=== PATIENT | male | born 1965 | race Caucasian/White ===

== ENCOUNTER 2016-05-08 13:06 | Emergency (ER) | payer MEDICARE, OTHER ==
[~2016-05-08] VITALS: Ht 177.8 cm; Wt 90.7 kg
[~2016-05-08 13:06] MED LIST: ASCO500T20 PO; BIOT25006 PO; CA C1TAB26 PO; CALC-80 PO; CLCX200C PO; DIPH25TA82 PO; E400C PO; FLT05NA16 NSEACH; HYDR-2997 PO; HYDR-3583 PO; LISI10TA PO; LNZ600T PO; LORA10TA7 PO; LOVA40TA2 PO; MUPI22OI TP; OMEG-12 PO; RANI75TA30 PO
--- OUTSIDE RECORDS SUMMARY | 2016-05-08 13:15 | XMS REPORT | Continuity of Care Document ---
Author Author [facility] Address Unknown Phone Unavailable Allergies Active Description Code Type Severity Reaction Onset Reported/Identified Relationship to Patient Clinical Status Yes citrus Food Allergy N/A N/A 04/26/2009 Yes peanut butter Food Allergy N/A N/A 04/26/2009 Yes citrus Food Allergy 04/26/2009 Yes peanut butter Food Allergy 04/26/2009 Yes gabapentin 300 mg capsule Drug Allergy N/A N/A 10/16/2011 Yes tramadol 50 mg Tablet Drug Allergy N/A N/A 10/16/2011 Yes gabapentin 300 mg capsule Drug Allergy 10/16/2011 Yes tramadol 50 mg Tablet Drug Allergy 10/16/2011 Medications Problems Date Dx Coded Attending Type Code Diagnosis Diagnosed By 04/26/2009 ROSAURA MCCRAY DO 401.1 BENIGN ESSENTIAL HYPERTENSION 04/26/2009 ROSAURA MCCRAY DO 473.9 Unspecified Sinusitis (chronic) 04/26/2009 ROSAURA MCCRAY DO 786.05 Shortness Of Breath 04/26/2009 DAVID POOL PHD 401.1 BENIGN ESSENTIAL HYPERTENSION 04/26/2009 DAVID POOL PHD 473.9 Unspecified Sinusitis (chronic) 04/26/2009 DAVID POOL PHD 786.05 Shortness Of Breath 04/26/2009 401.1 BENIGN ESSENTIAL HYPERTENSION 04/26/2009 473.9 Unspecified Sinusitis (chronic) 04/26/2009 786.05 Shortness Of Breath 04/26/2009 401.1 BENIGN ESSENTIAL HYPERTENSION 04/26/2009 473.9 Unspecified Sinusitis (chronic) 04/26/2009 786.05 Shortness Of Breath 04/26/2009 TAYE NAVARRO DDS 401.1 BENIGN ESSENTIAL HYPERTENSION 04/26/2009 TAYE NAVARRO DDS 473.9 Unspecified Sinusitis (chronic) 04/26/2009 TAYE NAVARRO DDS 786.05 Shortness Of Breath 04/26/2009 TAYE NAVRARO DDS 401.1 BENIGN ESSENTIAL HYPERTENSION 04/26/2009 MELANIE DDS, TAYE M 473.9 Unspecified Sinusitis (chronic) 04/26/2009 MELANIE DDS, TAYE Adam 786.05 Shortness Of Breath 04/26/2009 MELANIE DDS, TAYE M 401.1 BENIGN ESSENTIAL HYPERTENSION 04/26/2009 MELANIE DDS, TAYE M 473.9 Unspecified Sinusitis (chronic) 04/26/2009 MELANIE DDS, TAYE Adam 786.05 Shortness Of Breath 04/26/2009 DAVID POOL PHD 401.1 BENIGN ESSENTIAL HYPERTENSION 04/26/2009 YRN HARGROVE, DAVID Benavides 473.9 Unspecified Sinusitis (chronic) 04/26/2009 DAVID POOL PHD 786.05 Shortness Of Breath 04/26/2009 JOSE LUIS HISTORIOGRAPHY TEACHER, BRADY S 401.1 BENIGN ESSENTIAL HYPERTENSION 04/26/2009 JOSE LUIS HISTORIOGRAPHY TEACHER, BRADY S 473.9 Unspecified Sinusitis (chronic) 04/26/2009 JOSE LUIS HISTORIOGRAPHY TEACHER, BRADY S 786.05 Shortness Of Breath 04/26/2009 JOSE LUIS HISTORIOGRAPHY TEACHER, BRADY S 401.1 BENIGN ESSENTIAL HYPERTENSION 04/26/2009 JOSE LUIS HISTORIOGRAPHY TEACHER, BRADY S 473.9 Unspecified Sinusitis (chronic) 04/26/2009 JOSE LUIS HISTORIOGRAPHY TEACHER, BRADY S 786.05 Shortness Of Breath 04/26/2009 WHITE DDS, MARIIA D 401.1 BENIGN ESSENTIAL HYPERTENSION 04/26/2009 WHITE DDS, MARIIA D 473.9 Unspecified Sinusitis (chronic) 04/26/2009 WHITE DDS, MARIIA D 786.05 Shortness Of Breath 04/26/2009 JOSE LUIS HISTORIOGRAPHY TEACHER, BRADY S 401.1 BENIGN ESSENTIAL HYPERTENSION 04/26/2009 JOSE LUIS HISTORIOGRAPHY TEACHER, BRADY S 473.9 Unspecified Sinusitis (chronic) 04/26/2009 JOSE LUIS HISTORIOGRAPHY TEACHER, BRADY S 786.05 Shortness Of Breath 05/10/2009 ROSAURA MCCRAY DO 272.4 OTHER AND UNSPECIFIED HYPERLIPIDEMIA 05/10/2009 DAVID POOL PHD 272.4 OTHER AND UNSPECIFIED HYPERLIPIDEMIA 05/10/2009 272.4 OTHER AND UNSPECIFIED HYPERLIPIDEMIA 05/10/2009 272.4 OTHER AND UNSPECIFIED HYPERLIPIDEMIA 05/10/2009 MELANIE ROJASS, TAYE M 272.4 OTHER AND UNSPECIFIED HYPERLIPIDEMIA 05/10/2009 MELANIE DDS, TAYE M 272.4 OTHER AND UNSPECIFIED HYPERLIPIDEMIA 05/10/2009 MELANIE DDS, TAYE M 272.4 OTHER AND UNSPECIFIED HYPERLIPIDEMIA 05/10/2009 YRN PHD, DAVID Benavides 272.4 OTHER AND UNSPECIFIED HYPERLIPIDEMIA 05/10/2009 JOSE LUIS HISTORIOGRAPHY TEACHER, BRADY S 272.4 OTHER AND UNSPECIFIED HYPERLIPIDEMIA 05/10/2009 JOSE LUIS HISTORIOGRAPHY TEACHER, BRADY S 272.4 OTHER AND UNSPECIFIED HYPERLIPIDEMIA 05/10/2009 WHITE DDS, MARIIA Garduno 272.4 OTHER AND UNSPECIFIED HYPERLIPIDEMIA 05/10/2009 JOSE LUIS HISTORIOGRAPHY TEACHER, BRADY S 272.4 OTHER AND UNSPECIFIED HYPERLIPIDEMIA 09/04/2009 ROSAURA MCCRAY DO 692.9 Dermatitis Contact Unspecified 09/04/2009 YRN PHD, DAVID Benavides 692.9 Dermatitis Contact Unspecified 09/04/2009 692.9 Dermatitis Contact Unspecified 09/04/2009 692.9 Dermatitis Contact Unspecified 09/04/2009 MELANIE DDS, TAYE M 692.9 Dermatitis Contact Unspecified 09/04/2009 MELANIE DDS, TAYE M 692.9 Dermatitis Contact Unspecified 09/04/2009 MELANIE DDS, TAYE M 692.9 Dermatitis Contact Unspecified 09/04/2009 YRN PHD, DAVID Benavides 692.9 Dermatitis Contact Unspecified 09/04/2009 JOSE LUIS HISTORIOGRAPHY TEACHER, BRADY S 692.9 Dermatitis Contact Unspecified 09/04/2009 JOSE LUIS HISTORIOGRAPHY TEACHER, BRADY S 692.9 Dermatitis Contact Unspecified 09/04/2009 WHITE DDS, MARIIA Garduno 692.9 Dermatitis Contact Unspecified 09/04/2009 JOSE LUIS HISTORIOGRAPHY TEACHER, BRADY S 692.9 Dermatitis Contact Unspecified 12/26/2009 ROSAURA MCCRAY DO 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 12/26/2009 ROSAURA MCCRAY DO V03.82 Pcv7 Pcv13 Pcv23, Streptococcus Pneumoniae [ pneumococcus] 12/26/2009 DAVID POOL PHD 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 12/26/2009 YRN HARGROVE, DAVID Benavides V03.82 Pcv7 Pcv13 Pcv23, Streptococcus Pneumoniae [pneumococcus] 12/26/2009 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 12/26/2009 V03.82 Pcv7 Pcv13 Pcv23, Streptococcus Pneumoniae [pneumococcus] 12/26/2009 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 12/26/2009 V03.82 Pcv7 Pcv13 Pcv23, Streptococcus Pneumoniae [pneumococcus] 12/26/2009 MELANIE DDS, TAYE Adam 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 12/26/2009 MELANIE DDS, TAYE Adam V03.82 Pcv7 Pcv13 Pcv23, Streptococcus Pneumoniae [pneumococcus] 12/26/2009 MELANIE DDS, TAYE Kia 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 12/26/2009 MELANIE DDS, TAYE Adam V03.82 Pcv7 Pcv13 Pcv23, Streptococcus Pneumoniae [pneumococcus] 12/26/2009 MELANIE DDS, TAYE Adam 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 12/26/2009 MELANIE DDS, TAYE Adam V03.82 Pcv7 Pcv13 Pcv23, Streptococcus Pneumoniae [pneumococcus] 12/26/2009 YRN HARGROVE, DAVID Benavides 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 12/26/2009 YRN HARGROVE, DAVID Benavides V03.82 Pcv7 Pcv13 Pcv23, Streptococcus Pneumoniae [pneumococcus] 12/26/2009 JOSE LUIS MEZAN, BRADY S 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 12/26/2009 JOSE LUIS MEZAN, BRADY S V03.82 Pcv7 Pcv13 Pcv23, Streptococcus Pneumoniae [pneumococcus] 12/26/2009 JOSE LUIS MEZAN, BRADY S 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 12/26/2009 JOSE LUIS MEZAN, BRADY S V03.82 Pcv7 Pcv13 Pcv23, Streptococcus Pneumoniae [pneumococcus] 12/26/2009 DAE DDS, MARIIA Garduno 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21 ACUTE POSTRAUMATIC HEADACHE 08/07/2010 DAVID POOL PHD 368.8 OTHER SPECIFIED VISUAL DISTURBANCES 08/07/2010 DAVID POOL PHD A 785.1 Palpitations 08/07/2010 DAVID POOL PHD 959.01 OTHER AND UNSPECIFIED INJURY TO HEAD 08/07/2010 339.21 ACUTE POSTRAUMATIC HEADACHE 08/07/2010 368.8 OTHER SPECIFIED VISUAL DISTURBANCES 08/07/2010 785.1 Palpitations 08/07/2010 959.01 OTHER AND UNSPECIFIED INJURY TO HEAD 08/07/2010 339.21 ACUTE POSTRAUMATIC HEADACHE 08/07/2010 368.8 OTHER SPECIFIED VISUAL DISTURBANCES 08/07/2010 785.1 Palpitations 08/07/2010 959.01 OTHER AND UNSPECIFIED INJURY TO HEAD 08/07/2010 MELANIE DDS, TAYE M 339.21 ACUTE POSTRAUMATIC HEADACHE 08/07/2010 MELANIE DDS, TAYE M 368.8 OTHER SPECIFIED VISUAL DISTURBANCES 08/07/2010 MELANIE DDS, TAYE M 785.1 Palpitations 08/07/2010 MELANIE DDS, TAYE M 959.01 OTHER AND UNSPECIFIED INJURY TO HEAD 08/07/2010 MELANIE DDS, TAYE M 339.21 ACUTE POSTRAUMATIC HEADACHE 08/07/2010 MELANIE DDS, TAYE M 368.8 OTHER SPECIFIED VISUAL DISTURBANCES 08/07/2010 MELANIE DDS, TAYE M 785.1 Palpitations 08/07/2010 MELANIE DDS, TAYE M 959.01 OTHER AND UNSPECIFIED INJURY TO HEAD 08/07/2010 MELANIE DDS, TAYE M 339.21 ACUTE POSTRAUMATIC HEADACHE 08/07/2010 MELANIE DDS, TAYE M 368.8 OTHER SPECIFIED VISUAL DISTURBANCES 08/07/2010 MELANIE DDS, TAYE M 785.1 Palpitations 08/07/2010 MELANIE DDS, TAYE M 959.01 OTHER AND UNSPECIFIED INJURY TO HEAD 08/07/2010 [facility], DAVID A 339.21 ACUTE POSTRAUMATIC HEADACHE 08/07/2010 [facility], DAVID A 368.8 OTHER SPECIFIED VISUAL DISTURBANCES 08/07/2010 [facility] PH[facility], DAVID A 785.1 Palpitations 08/07/2010 [facility] PHD, DAVID A 959.01 OTHER AND UNSPECIFIED INJURY TO HEAD 08/07/2010 JOSE LUIS HISTORIOGRAPHY TEACHER, BRADY S 339.21 ACUTE POSTRAUMATIC HEADACHE 08/07/2010 JOSE LUIS HISTORIOGRAPHY TEACHER, BRADY S 368.8 OTHER SPECIFIED VISUAL DISTURBANCES 08/07/2010 JOSE LUIS HISTORIOGRAPHY TEACHER, BRADY S 785.1 Palpitations 08/07/2010 JOSE LUIS HISTORIOGRAPHY TEACHER, BRADY S 959.01 OTHER AND UNSPECIFIED INJURY TO HEAD 08/07/2010 JOSE LUIS HISTORIOGRAPHY TEACHER, BRADY S 339.21 ACUTE POSTRAUMATIC HEADACHE 08/07/2010 JOSE LUIS HISTORIOGRAPHY TEACHER, BRADY S 368.8 OTHER SPECIFIED VISUAL DISTURBANCES 08/07/2010 JOSE LUIS HISTORIOGRAPHY TEACHER, BRADY S 785.1 Palpitations 08/07/2010 JOSE LUIS HISTORIOGRAPHY TEACHER, BRADY S 959.01 OTHER AND UNSPECIFIED INJURY TO HEAD 08/07/2010 WHITE DDS, MARIIA D 339.21 ACUTE POSTRAUMATIC HEADACHE 08/07/2010 WHITE DDS, MARIIA D 368.8 OTHER SPECIFIED VISUAL DISTURBANCES 08/07/2010 WHITE DDS, MARIIA D 785.1 Palpitations 08/07/2010 WHITE DDS, MARIIA D 959.01 OTHER AND UNSPECIFIED INJURY TO HEAD 08/07/2010 JOSE LUIS HISTORIOGRAPHY TEACHER, BRADY S 339.21 ACUTE POSTRAUMATIC HEADACHE 08/07/2010 JOSE LUIS HISTORIOGRAPHY TEACHER, BRADY S 368.8 OTHER SPECIFIED VISUAL DISTURBANCES 08/07/2010 JOSE LUIS HISTORIOGRAPHY TEACHER, BRADY S 785.1 Palpitations 08/07/2010 JOSE LUIS HISTORIOGRAPHY TEACHER, BRADY S 959.01 OTHER AND UNSPECIFIED INJURY TO HEAD 08/30/2010 ROSAURA MCCRAY DO 682.0 Cellulitis And Abscess Of Face 08/30/2010 YRN PHD, DAVID Benavides 682.0 Cellulitis And Abscess Of Face 08/30/2010 682.0 Cellulitis And Abscess Of Face 08/30/2010 682.0 Cellulitis And Abscess Of Face 08/30/2010 MELANIE DDS, TAYE Adam 682.0 Cellulitis And Abscess Of Face 08/30/2010 MELANIE DDS, TAYE Adam 682.0 Cellulitis And Abscess Of Face 08/30/2010 MELANIE DDS, TAYE Adam 682.0 Cellulitis And Abscess Of Face 08/30/2010 YRN PHD, DAVID Benavides 682.0 Cellulitis And Abscess Of Face 08/30/2010 JOSE LUIS HISTORIOGRAPHY TEACHER, BRADY S 682.0 Cellulitis And Abscess Of Face 08/30/2010 JOSE LUIS HISTORIOGRAPHY TEACHER, BRADY S 682.0 Cellulitis And Abscess Of Face 08/30/2010 DAE DDS, MARIIA Garduno 682.0 Cellulitis And Abscess Of Face 08/30/2010 JOSE LUIS HISTORIOGRAPHY TEACHER, BRADY S 682.0 Cellulitis And Abscess Of Face 11/21/2010 ROSAURA MCCRAY DO 719.49 PAIN IN JOINT INVOLVING MULTIPLE SITES 11/21/2010 ROSAURA MCCRAY DO 780.2 Syncope And Collapse 11/21/2010 YRN HARGROVE, DAVID Benavides 719.49 PAIN IN JOINT INVOLVING MULTIPLE SITES 11/21/2010 DAVID POOL PHD 780.2 Syncope And Collapse 11/21/2010 719.49 PAIN IN JOINT INVOLVING MULTIPLE SITES 11/21/2010 780.2 Syncope And Collapse 11/21/2010 719.49 PAIN IN JOINT INVOLVING MULTIPLE SITES 11/21/2010 780.2 Syncope And Collapse 11/21/2010 MELANIE DDS, TAYE Adam 719.49 PAIN IN JOINT INVOLVING MULTIPLE SITES 11/21/2010 MELANIE DDS, TAYE Adam 780.2 Syncope And Collapse 11/21/2010 MELANIE DDS, TAYE Adam 719.49 PAIN IN JOINT INVOLVING MULTIPLE SITES 11/21/2010 MELANIE DDS, TAYE Adam 780.2 Syncope And Collapse 11/21/2010 MELANIE DDS, TAYE Adam 719.49 PAIN IN JOINT INVOLVING MULTIPLE SITES 11/21/2010 MELANIE DDS, TAYE Adam 780.2 Syncope And Collapse 11/21/2010 DAVID POOL PHD 719.49 PAIN IN JOINT INVOLVING MULTIPLE SITES 11/21/2010 DAVID POOL PHD 780.2 Syncope And Collapse 11/21/2010 JOSE LUIS HISTORIOGRAPHY TEACHER, BRADY S 719.49 PAIN IN JOINT INVOLVING MULTIPLE SITES 11/21/2010 JOSE LUIS HISTORIOGRAPHY TEACHER, BRADY S 780.2 Syncope And Collapse 11/21/2010 JOSE LUIS HISTORIOGRAPHY TEACHER, BRADY S 719.49 PAIN IN JOINT INVOLVING MULTIPLE SITES 11/21/2010 JOSE LUIS HISTORIOGRAPHY TEACHER, BRADY S 780.2 Syncope And Collapse 11/21/2010 WHITE DDS, MARIIA D 719.49 PAIN IN JOINT INVOLVING MULTIPLE SITES 11/21/2010 WHITE DDS, MARIIA D 780.2 Syncope And Collapse 11/21/2010 JOSE LUIS HISTORIOGRAPHY TEACHER, BRADY S 719.49 PAIN IN JOINT INVOLVING MULTIPLE SITES 11/21/2010 JOSE LUIS HISTORIOGRAPHY TEACHER, BRADY S 780.2 Syncope And Collapse 11/28/2010 ROSAURA MCCRAY DO 311 DEPRESSIVE DISORDER NOS 11/28/2010 DAVID POOL PHD 311 DEPRESSIVE DISORDER NOS 11/28/2010 311 DEPRESSIVE DISORDER NOS 11/28/2010 311 DEPRESSIVE DISORDER NOS 11/28/2010 MELANIE DDS, TAYE Adam 311 DEPRESSIVE DISORDER NOS 11/28/2010 MELANIE DDS, TAYE Adam 311 DEPRESSIVE DISORDER NOS 11/28/2010 MELANIE DDS, TAYE Adam 311 DEPRESSIVE DISORDER NOS 11/28/2010 DAVID POOL PHD 311 DEPRESSIVE DISORDER NOS 11/28/2010 JOSE LUIS PATEL, BRADY S 311 DEPRESSIVE DISORDER NOS 11/28/2010 JOSE LUIS PATEL, BRADY S 311 DEPRESSIVE DISORDER NOS 11/28/2010 DAE DDS, MARIIA Garduno 311 DEPRESSIVE DISORDER NOS 11/28/2010 JOSE LUIS HISTORIOGRAPHY TEACHER, BRADY S 311 DEPRESSIVE DISORDER NOS 12/05/2010 ROSAURA MCCRAY DO V04.81 Flu Dx (3 Yrs And Above, Im) 12/05/2010 DAVID POOL PHD V04.81 Flu Dx (3 Yrs And Above, Im) 12/05/2010 V04.81 Flu Dx (3 Yrs And Above, Im) 12/05/2010 V04.81 Flu Dx (3 Yrs And Above, Im) 12/05/2010 MELANIE DDS, TAYE Adam V04.81 Flu Dx (3 Yrs And Above, Im) 12/05/2010 MELANIE DDS, TAYE Adam V04.81 Flu Dx (3 Yrs And Above, Im) 12/05/2010 MELANIE DDS, TAYE Adam V04.81 Flu Dx (3 Yrs And Above, Im) 12/05/2010 DAVID POOL PHD V04.81 Flu Dx (3 Yrs And Above, Im) 12/05/2010 JOSE LUIS HISTORIOGRAPHY TEACHER, BRADY S V04.81 Flu Dx (3 Yrs And Above, Im) 12/05/2010 JOSE LUIS HISTORIOGRAPHY TEACHER, BRADY S V04.81 Flu Dx (3 Yrs And Above, Im) 12/05/2010 WHITE DDS, MARIIA Garduno V04.81 Flu Dx (3 Yrs And Above, Im) 12/05/2010 JOSE LUIS HISTORIOGRAPHY TEACHER, BRADY S V04.81 Flu Dx (3 Yrs And Above, Im) 01/02/2011 ROSAURA MCCRAY DO K 786.50 Chest Pain 01/02/2011 DAVID POOL PHD 786.50 Chest Pain 01/02/2011 786.50 Chest Pain 01/02/2011 786.50 Chest Pain 01/02/2011 MELANIE DDS, TAYE Adam 786.50 Chest Pain 01/02/2011 MELANIE DDS, TAYE Adam 786.50 Chest Pain 01/02/2011 MELANIE DDS, TAYE Adam 786.50 Chest Pain 01/02/2011 DAVID POOL PHD A 786.50 Chest Pain 01/02/2011 JOSE LUIS HISTORIOGRAPHY TEACHER, BRADY S 786.50 Chest Pain 01/02/2011 JOSE LUIS HISTORIOGRAPHY TEACHER, BRADY S 786.50 Chest Pain 01/02/2011 WHITE DDS, MARIIA D 786.50 Chest Pain 01/02/2011 JOSE LUIS HISTORIOGRAPHY TEACHER, BRADY S 786.50 Chest Pain 01/07/2011 ROSAURA MCCRAY DO 706.2 Sebaceous Cyst 01/07/2011 ROSAURA MCCRAY DO 959.09 OTHER AND UNSPECIFIED INJURY TO FACE AND NECK 01/07/2011 DAVID POOL PHD 706.2 Sebaceous Cyst 01/07/2011 DAVID POOL PHD 959.09 OTHER AND UNSPECIFIED INJURY TO FACE AND NECK 01/07/2011 706.2 Sebaceous Cyst 01/07/2011 959.09 OTHER AND UNSPECIFIED INJURY TO FACE AND NECK 01/07/2011 706.2 Sebaceous Cyst 01/07/2011 959.09 OTHER AND UNSPECIFIED INJURY TO FACE AND NECK 01/07/2011 MELANIE DDS, TAYE M 706.2 Sebaceous Cyst 01/07/2011 MELANIE DDS, TAYE M 959.09 OTHER AND UNSPECIFIED INJURY TO FACE AND NECK 01/07/2011 MELANIE DDS, TAYE M 706.2 Sebaceous Cyst 01/07/2011 MELANIE DDS, TAYE M 959.09 OTHER AND UNSPECIFIED INJURY TO FACE AND NECK 01/07/2011 MELANIE DDS, TAYE M 706.2 Sebaceous Cyst 01/07/2011 MELANIE DDS, TAYE M 959.09 OTHER AND UNSPECIFIED INJURY TO FACE AND NECK 01/07/2011 DAVID POOL PHD 706.2 Sebaceous Cyst 01/07/2011 DAVID POOL PHD 959.09 OTHER AND UNSPECIFIED INJURY TO FACE AND NECK 01/07/2011 JOSE LUIS HISTORIOGRAPHY TEACHER, BRADY S 706.2 Sebaceous Cyst 01/07/2011 JOSE LUIS HISTORIOGRAPHY TEACHER, BRADY S 959.09 OTHER AND UNSPECIFIED INJURY TO FACE AND NECK 01/07/2011 JOSE LUIS HISTORIOGRAPHY TEACHER, BRADY S 706.2 Sebaceous Cyst 01/07/2011 JOSE LUIS HISTORIOGRAPHY TEACHER, BRADY S 959.09 OTHER AND UNSPECIFIED INJURY TO FACE AND NECK 01/07/2011 WHITE DDS, MARIIA D 706.2 Sebaceous Cyst 01/07/2011 WHITE DDS, MARIIA D 959.09 OTHER AND UNSPECIFIED INJURY TO FACE AND NECK 01/07/2011 JOSE LUIS HISTORIOGRAPHY TEACHER, BRADY S 706.2 Sebaceous Cyst 01/07/2011 JOSE LUIS HISTORIOGRAPHY TEACHER, BRADY S 959.09 OTHER AND UNSPECIFIED INJURY TO FACE AND NECK 04/30/2011 ROSAURA MCCRAY DO 473.9 Unspecified Sinusitis (chronic) 04/30/2011 DAVID POOL PHD 473.9 Unspecified Sinusitis (chronic) 04/30/2011 473.9 Unspecified Sinusitis (chronic) 04/30/2011 473.9 Unspecified Sinusitis (chronic) 04/30/2011 MELANIE DDS, TAYE Adam 473.9 Unspecified Sinusitis (chronic) 04/30/2011 MELANIE DDS, TAYE M 473.9 Unspecified Sinusitis (chronic) 04/30/2011 MELANIE ROJASS, TAYE Adam 473.9 Unspecified Sinusitis (chronic) 04/30/2011 DAVID POOL PHD 473.9 Unspecified Sinusitis (chronic) 04/30/2011 JOSE LUIS HISTORIOGRAPHY TEACHER, BRADY S 473.9 Unspecified Sinusitis (chronic) 04/30/2011 JOSE LUIS HISTORIOGRAPHY TEACHER, BRADY S 473.9 Unspecified Sinusitis (chronic) 04/30/2011 DAE ROJASS, MARIIA Garduno 473.9 Unspecified Sinusitis (chronic) 04/30/2011 JOSE LUIS HISTORIOGRAPHY TEACHER, BRADY S 473.9 Unspecified Sinusitis (chronic) 05/22/2011 MAHENDRA DOROSAURA K 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 05/22/2011 DAVID POOL PHD 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 05/22/2011 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 05/22/2011 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 05/22/2011 TAYE NAVARRO DDS 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 05/22/2011 TAYE NAVARRO DDS 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 05/22/2011 TAYE NAVARRO DDS 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 05/22/2011 DAVID POOL PHD 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 05/22/2011 JOSE LUIS HISTORIOGRAPHY TEACHER, BRADY S 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6 Contact Dermatitis And Other Eczema Due To Plants (except Food) 07/11/2011 DAVID POOL PHD 719.40 PAIN IN JOINT SITE UNSPECIFIED 07/11/2011 DAVID POOL PHD 780.79 Other Malaise And Fatigue 07/11/2011 692.6 Contact Dermatitis And Other Eczema Due To Plants (except Food) 07/11/2011 719.40 PAIN IN JOINT SITE UNSPECIFIED 07/11/2011 780.79 Other Malaise And Fatigue 07/11/2011 692.6 Contact Dermatitis And Other Eczema Due To Plants (except Food) 07/11/2011 719.40 PAIN IN JOINT SITE UNSPECIFIED 07/11/2011 780.79 Other Malaise And Fatigue 07/11/2011 MELANIE DDS, TAYE Adam 692.6 Contact Dermatitis And Other Eczema Due To Plants (except Food) 07/11/2011 MELANIE DDS, TAYE Adam 719.40 PAIN IN JOINT SITE UNSPECIFIED 07/11/2011 MELANIE DDS, TAYE Adam 780.79 Other Malaise And Fatigue 07/11/2011 MELANIE DDS, TAYE M 692.6 Contact Dermatitis And Other Eczema Due To Plants (except Food) 07/11/2011 MELANIE DDS, TAYE Adam 719.40 PAIN IN JOINT SITE UNSPECIFIED 07/11/2011 MELANIE DDS, TAYE Adam 780.79 Other Malaise And Fatigue 07/11/2011 MELANIE DDS, TAYE M 692.6 Contact Dermatitis And Other Eczema Due To Plants (except Food) 07/11/2011 MELANIE DDS, TAYE M 719.40 PAIN IN JOINT SITE UNSPECIFIED 07/11/2011 MELANIE DDS, TAYE Adam 780.79 Other Malaise And Fatigue 07/11/2011 DAVID POOL PHD 692.6 Contact Dermatitis And Other Eczema Due To Plants (except Food) 07/11/2011 YRN HARGROVE DAVID Benavides 719.40 PAIN IN JOINT SITE UNSPECIFIED 07/11/2011 YRN HARGROVE, DAVID Benavides 780.79 Other Malaise And Fatigue 07/11/2011 JOSE LUIS HISTORIOGRAPHY TEACHER, BRADY S 692.6 Contact Dermatitis And Other Eczema Due To Plants (except Food) 07/11/2011 JOSE LUIS HISTORIOGRAPHY TEACHER, BRADY S 719.40 PAIN IN JOINT SITE UNSPECIFIED 07/11/2011 JOSE LUIS HISTORIOGRAPHY TEACHER, BRADY S 780.79 Other Malaise And Fatigue 07/11/2011 JOSE LUIS HISTORIOGRAPHY TEACHER, BRADY S 692.6 Contact Dermatitis And Other Eczema Due To Plants (except Food) 07/11/2011 JOSE LUIS HISTORIOGRAPHY TEACHER, BRADY S 719.40 PAIN IN JOINT SITE UNSPECIFIED 07/11/2011 JOSE LUIS HISTORIOGRAPHY TEACHER, BRADY S 780.79 Other Malaise And Fatigue 07/11/2011 WHITE DDS, MARIIA D 692.6 Contact Dermatitis And Other Eczema Due To Plants (except Food) 07/11/2011 WHITE DDS, MARIIA D 719.40 PAIN IN JOINT SITE UNSPECIFIED 07/11/2011 WHITE DDS, MARIIA D 780.79 Other Malaise And Fatigue 07/11/2011 JOSE LUIS HISTORIOGRAPHY TEACHER, BRADY S 692.6 Contact Dermatitis And Other Eczema Due To Plants (except Food) 07/11/2011 JOSE LUIS HISTORIOGRAPHY TEACHER, BRADY S 719.40 PAIN IN JOINT SITE UNSPECIFIED 07/11/2011 JOSE LUIS HISTORIOGRAPHY TEACHER, BRADY S 780.79 Other Malaise And Fatigue 07/30/2011 ROSAURA MCCRAY DO 682.3 Cellulitis And Abscess Of Upper Arm And Forearm 07/30/2011 ROSAURA MCCRAY DO 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 07/30/2011 YRN HARGROVE, DAVID Benavides 682.3 Cellulitis And Abscess Of Upper Arm And Forearm 07/30/2011 YRN HARGROVE, DAVID Benavides 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 07/30/2011 682.3 Cellulitis And Abscess Of Upper Arm And Forearm 07/30/2011 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 07/30/2011 682.3 Cellulitis And Abscess Of Upper Arm And Forearm 07/30/2011 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 07/30/2011 MELANIE DDS, TAYE M 682.3 Cellulitis And Abscess Of Upper Arm And Forearm 07/30/2011 MELANIE DDS, TAYE M 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 07/30/2011 MELANIE DDS, TAYE M 682.3 Cellulitis And Abscess Of Upper Arm And Forearm 07/30/2011 MELANIE DDS, TAYE M 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 07/30/2011 MELANIE DDS, TAYE M 682.3 Cellulitis And Abscess Of Upper Arm And Forearm 07/30/2011 MELANIE DDS, TAYE M 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 07/30/2011 DAVID POOL PHD 682.3 Cellulitis And Abscess Of Upper Arm And Forearm 07/30/2011 DAVID POOL PHD 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 07/30/2011 JOSE LUIS HISTORIOGRAPHY TEACHER, BRADY S 682.3 Cellulitis And Abscess Of Upper Arm And Forearm 07/30/2011 JOSE LUIS HISTORIOGRAPHY TEACHER, BRADY S 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 07/30/2011 JOSE LUIS HISTORIOGRAPHY TEACHER, BRADY S 682.3 Cellulitis And Abscess Of Upper Arm And Forearm 07/30/2011 JOSE LUIS HISTORIOGRAPHY TEACHER, BRADY S 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 07/30/2011 WHITE DDS, MARIIA D 682.3 Cellulitis And Abscess Of Upper Arm And Forearm 07/30/2011 WHITE DDS, MARIIA D 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 07/30/2011 JOSE LUIS HISTORIOGRAPHY TEACHER, BRADY S 682.3 Cellulitis And Abscess Of Upper Arm And Forearm 07/30/2011 JOSE LUIS HISTORIOGRAPHY TEACHER, BRADY S 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 08/05/2011 ROSAURA MCCRAY DO 041.12 Mrsa, Methicillin Resistant 08/05/2011 ROSAURA MCCRAY DO 682.3 Cellulitis And Abscess Of Upper Arm And Forearm 08/05/2011 YRN HARGROVE, DAVID Benavides 041.12 Mrsa, Methicillin Resistant 08/05/2011 YRN HARGROVE, DAVID Benavides 682.3 Cellulitis And Abscess Of Upper Arm And Forearm 08/05/2011 041.12 Mrsa, Methicillin Resistant 08/05/2011 682.3 Cellulitis And Abscess Of Upper Arm And Forearm 08/05/2011 041.12 Mrsa, Methicillin Resistant 08/05/2011 682.3 Cellulitis And Abscess Of Upper Arm And Forearm 08/05/2011 MELANIE DDS, TAYE M 041.12 Mrsa, Methicillin Resistant 08/05/2011 MELANIE DDS, TAYE M 682.3 Cellulitis And Abscess Of Upper Arm And Forearm 08/05/2011 MELANIE DDS, TAYE M 041.12 Mrsa, Methicillin Resistant 08/05/2011 MELANIE DDS, TAYE M 682.3 Cellulitis And Abscess Of Upper Arm And Forearm 08/05/2011 MELANIE DDS, TAYE M 041.12 Mrsa, Methicillin Resistant 08/05/2011 MELANIE DDS, TAYE M 682.3 Cellulitis And Abscess Of Upper Arm And Forearm 08/05/2011 DAVID POOL PHD 041.12 Mrsa, Methicillin Resistant 08/05/2011 DAVID POOL PHD 682.3 Cellulitis And Abscess Of Upper Arm And Forearm 08/05/2011 JOSE LUIS HISTORIOGRAPHY TEACHER, BRADY S 041.12 Mrsa, Methicillin Resistant 08/05/2011 JOSE LUIS HISTORIOGRAPHY TEACHER, BRADY S 682.3 Cellulitis And Abscess Of Upper Arm And Forearm 08/05/2011 JOSE LUIS HISTORIOGRAPHY TEACHER, BRADY S 041.12 Mrsa, Methicillin Resistant 08/05/2011 JOSE LUIS HISTORIOGRAPHY TEACHER, BRADY S 682.3 Cellulitis And Abscess Of Upper Arm And Forearm 08/05/2011 WHITE DDS, MARIIA D 041.12 Mrsa, Methicillin Resistant 08/05/2011 WHITE DDS, MARIIA D 682.3 Cellulitis And Abscess Of Upper Arm And Forearm 08/05/2011 JOSE LUIS HISTORIOGRAPHY TEACHER, BRADY S 041.12 Mrsa, Methicillin Resistant 08/05/2011 JOSE LUIS HISTORIOGRAPHY TEACHER, BRADY S 682.3 Cellulitis And Abscess Of Upper Arm And Forearm 09/19/2011 ROSAURA MCCRAY DO 338.29 OTHER CHRONIC PAIN 09/19/2011 ROSAURA MCCRAY DO 339.22 CHRONIC POSTTRAUMATIC HEADACHE 09/19/2011 DAVID POOL PHD 338.29 OTHER CHRONIC PAIN 09/19/2011 DAVID POOL PHD 339.22 CHRONIC POSTTRAUMATIC HEADACHE 09/19/2011 338.29 OTHER CHRONIC PAIN 09/19/2011 339.22 CHRONIC POSTTRAUMATIC HEADACHE 09/19/2011 338.29 OTHER CHRONIC PAIN 09/19/2011 339.22 CHRONIC POSTTRAUMATIC HEADACHE 09/19/2011 MELANIE DDS, TAYE M 338.29 OTHER CHRONIC PAIN 09/19/2011 MELANIE DDS, TAYE M 339.22 CHRONIC POSTTRAUMATIC HEADACHE 09/19/2011 MELANIE DDS, TAYE M 338.29 OTHER CHRONIC PAIN 09/19/2011 MELANIE DDS, TAYE M 339.22 CHRONIC POSTTRAUMATIC HEADACHE 09/19/2011 MELANIE DDS, TAYE M 338.29 OTHER CHRONIC PAIN 09/19/2011 MELANIE DDS, TAYE M 339.22 CHRONIC POSTTRAUMATIC HEADACHE 09/19/2011 YRN PHD, DAVID Benavides 338.29 OTHER CHRONIC PAIN 09/19/2011 YRN HARGROVE, DAVID Benavides 339.22 CHRONIC POSTTRAUMATIC HEADACHE 09/19/2011 JOSE LUIS HISTORIOGRAPHY TEACHER, BRADY S 338.29 OTHER CHRONIC PAIN 09/19/2011 JOSE LUIS HISTORIOGRAPHY TEACHER, BRADY S 339.22 CHRONIC POSTTRAUMATIC HEADACHE 09/19/2011 JOSE LUIS HISTORIOGRAPHY TEACHER, BRADY S 338.29 OTHER CHRONIC PAIN 09/19/2011 JOSE LUIS HISTORIOGRAPHY TEACHER, BRADY S 339.22 CHRONIC POSTTRAUMATIC HEADACHE 09/19/2011 WHITE DDS, MARIIA D 338.29 OTHER CHRONIC PAIN 09/19/2011 WHITE DDS, MARIIA D 339.22 CHRONIC POSTTRAUMATIC HEADACHE 09/19/2011 JOSE LUIS HISTORIOGRAPHY TEACHER, BRADY S 338.29 OTHER CHRONIC PAIN 09/19/2011 JOSE LUIS HISTORIOGRAPHY TEACHER, BRADY S 339.22 CHRONIC POSTTRAUMATIC HEADACHE 10/16/2011 MCCRAY DO, ROSAURA K 079.99 Viral Syndrome 10/16/2011 MCCRAY DO, ROSAURA K 787.1 Heartburn 10/16/2011 YRN PHD, DAVID Benavides 079.99 Viral Syndrome 10/16/2011 YRN PHD, DAVID Benavides 787.1 Heartburn 10/16/2011 079.99 Viral Syndrome 10/16/2011 787.1 Heartburn 10/16/2011 079.99 Viral Syndrome 10/16/2011 787.1 Heartburn 10/16/2011 MELANIE DDS, TAYE Adam 079.99 Viral Syndrome 10/16/2011 MELANIE DDS, TAYE M 787.1 Heartburn 10/16/2011 MELANIE DDS, TAYE M 079.99 Viral Syndrome 10/16/2011 MELANIE DDS, TAYE M 787.1 Heartburn 10/16/2011 MELANIE DDS, TAYE M 079.99 Viral Syndrome 10/16/2011 MELANIE DDS, TAYE M 787.1 Heartburn 10/16/2011 YRN PHD, DAVID A 079.99 Viral Syndrome 10/16/2011 YRN PHD, DAVID A 787.1 Heartburn 10/16/2011 JOSE LUIS HISTORIOGRAPHY TEACHER, BRADY S 079.99 Viral Syndrome 10/16/2011 JOSE LUIS HISTORIOGRAPHY TEACHER, BRDAY S 787.1 Heartburn 10/16/2011 JOSE LUIS HISTORIOGRAPHY TEACHER, BRADY S 079.99 Viral Syndrome 10/16/2011 JOSE LUIS HISTORIOGRAPHY TEACHER, BRADY S 787.1 Heartburn 10/16/2011 WHITE DDS, MARIIA D 079.99 Viral Syndrome 10/16/2011 WHITE DDS, MARIIA Garduno 787.1 Heartburn 10/16/2011 JOSE LUIS MEZAN, BRADY S 079.99 Viral Syndrome 10/16/2011 JOSE LUIS HISTORIOGRAPHY TEACHER, BRADY S 787.1 Heartburn 12/26/2011 ROSAURA MCCRAY DO 296.32 MO DEPRESSIVE RECURRENT MODERATE 12/26/2011 YRN HARGROVE, DAVID Benavides 296.32 MO DEPRESSIVE RECURRENT MODERATE 12/26/2011 296.32 MO DEPRESSIVE RECURRENT MODERATE 12/26/2011 296.32 MO DEPRESSIVE RECURRENT MODERATE 12/26/2011 MELANIE DDS, TAYE M 296.32 MO DEPRESSIVE RECURRENT MODERATE 12/26/2011 MELANIE DDS, TAYE M 296.32 MO DEPRESSIVE RECURRENT MODERATE 12/26/2011 MELANIE DDS, TAYE M 296.32 MO DEPRESSIVE RECURRENT MODERATE 12/26/2011 DAVID POOL PHD A 296.32 MO DEPRESSIVE RECURRENT MODERATE 12/26/2011 ELIDIA AMAYA APRNNDA S 296.32 MO DEPRESSIVE RECURRENT MODERATE 12/26/2011 JOSE LUIS PATEL BRADY S 296.32 MO DEPRESSIVE RECURRENT MODERATE 12/26/2011 WHITE DDS, MARIIA D 296.32 MO DEPRESSIVE RECURRENT MODERATE 12/26/2011 ELIDIA AMAYA APRNNDA S 296.32 MO DEPRESSIVE RECURRENT MODERATE 11/17/2012 274.9 GOUT UNSPECIFIED 11/17/2012 703.0 NAIL INGROWN 11/17/2012 MELANIE DDS, TAYE M 274.9 GOUT UNSPECIFIED 11/17/2012 MELANIE DDS, TAYE M 703.0 NAIL INGROWN 11/17/2012 MELANIE DDS, TAYE M 274.9 GOUT UNSPECIFIED 11/17/2012 MELANIE DDS, TAYE M 703.0 NAIL INGROWN 11/17/2012 MELANIE DDS, TAYE M 274.9 GOUT UNSPECIFIED 11/17/2012 MELANIE DDS, TAYE M 703.0 NAIL INGROWN 11/17/2012 JOSE LUIS HISTORIOGRAPHY TEACHER, BRADY S 274.9 GOUT UNSPECIFIED 11/17/2012 JOSE LUIS HISTORIOGRAPHY TEACHER, BRADY S 703.0 NAIL INGROWN 11/17/2012 JOSE LUIS HISTORIOGRAPHY TEACHER, BRADY S 274.9 GOUT UNSPECIFIED 11/17/2012 JOSE LUIS HISTORIOGRAPHY TEACHER, BRADY S 703.0 NAIL INGROWN 11/17/2012 WHITE DDS, MARIIA D 274.9 GOUT UNSPECIFIED 11/17/2012 WHITE DDS, MARIIA D 703.0 NAIL INGROWN 11/17/2012 JOSE LUIS HISTORIOGRAPHY TEACHER, BRADY S 274.9 GOUT UNSPECIFIED 11/17/2012 JOSE LUIS HISTORIOGRAPHY TEACHER, BRADY S 703.0 NAIL INGROWN 09/23/2013 JOSE LUIS HISTORIOGRAPHY TEACHER, BRADY S 530.81 GERD 09/23/2013 WHITE DDS, MARIIA D 530.81 GERD 09/23/2013 JOSE LUIS HISTORIOGRAPHY TEACHER, BRADY S 530.81 GERD Procedures Code Description [place] [address] INDIV PSYTX 45/50 MIN 01/28/2012 99724 XRAY ELBOW L COMP MIN 3 VIEWS 02/10/2012 29790 XRAY HAND LEFT MIN 3 VIEWS 02/10/2012 96980 XRAY KNEE RIGHT 3 VIEWS 02/10/2012 99530 XRAY FEET, NOHEMY 99070 INDIV PSYTX 45/50 MIN 02/12/2012 05624 ROUTINE VENIPUNCTURE 10/22/2012 55526 ESR/SED RATE 35389 CBC 10/22/2012 99076 LIPID PANEL 10/22 93599 CMP 10/22/2012 2070253 GFR CALC (RESULT ONLY) 10/22/2012 43229 REMOVAL OF NAIL BED 12/11/2012 19092 ROUTINE VENIPUNCTURE 09/23/2013 88069 CBC 09/23/2013 7099406 GFR CALC (RESULT ONLY) 09/23/2013 97398 CMP 09/23/2013 85724 LIPID PANEL 09/23 02445 TSH 09/23/2013 Results Encounters ACCT No. Visit Date/Time Discharge Status Pt. Type Provider Facility Loc./Unit Complaint [id number] 04/12/2014 10:03:00 04/12/2014 23: 59:59 CLS Outpatient BRADY AMAYA APRN [id number] 11/29/2013 15:24:00 11/29/2013 23: 59:59 CLS Outpatient MARIIA PEARL DDS [id number] 09/23/2013 09:57:00 09/23/2013 23: 59:59 CLS Outpatient BRADY AMAYA APRN [id number] 06/03/2013 13:44:00 06/03/2013 23: 59:59 CLS Outpatient BRADY AMAYA APRN [id number] 01/12/2013 12:34:00 01/12/2013 23: 59:59 CLS Outpatient MELANIE DDTAYE Edward [id number] 12/09/2012 15:44:00 12/09/2012 23: 59:59 CLS Outpatient TAYE NAVARRO DDS [id number] 12/09/2012 00:00:00 12/09/2012 23: 59:59 CLS Outpatient TAYE NAVARRO DDS [id number] 02/12/2012 12:55:00 02/12/2012 23: 59:59 CLS Outpatient DAVID POOL PHD [id number] 02/10/2012 10:13:00 02/10/2012 23: 59:59 [place] [id number] 01/28/2012 12:50:00 01/28/2012 23: 59:59 CLS Outpatient DAVID POOL PHD [id number] 11/17/2012 09:37:00 Document Registration [id number] 10/22/2012 10:08:00 Document Registration
--- NOTE | 2016-05-08 13:39 | ED Upper Extremity ---
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 PT REPORTS INJURY TO R ARM/SHOULDER. PT DENIES LOC. 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 Patient now c/o rt shoulder pain. Denies hitting his head, LOC, confusion, neck pain, or back pain. 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.) Pain/Injury Location: right shoulder Method of Injury: fell Modifying Factors: Worse With Movement, Improves With Pain Medication ( improved with home pain medication.) Allergies and Home Medications Allergies Coded Allergies: No Known Drug Allergies (Unverified , 02/15/11) Home Medications Ascorbic Acid 500 Mg Tablet 500 MG PO DAILY (Reported) Ca Cmb No.1/Vit D3/B-6/Fa/B12 1 Each Tablet 400 INTLU PO DAILY (Reported) Calcium Carbonate/Vitamin D3 1 Each Tablet 1 EACH PO DAILY (Reported) Celecoxib 200 Mg Capsule 1 EACH PO BID (Reported) Fluticasone Propionate 16 Gm [place] 2 SPRAYS NSEACH QID (Reported) Hydrocodone Bit/Acetaminophen 1 Tab Tab #20 1-2 EA PO Q6H PRN PRN (Reported) Take for severe pain Linezolid 600 Mg Tab 10Days 600 MG PO BID (Reported) Lisinopril 10 Mg Tablet 10 MG PO daily hs (Reported) Lovastatin 40 Mg Tablet 2 EACH PO DAILY WITH SUPPER (Reported) Ranitidine Hcl 75 Mg Tablet 150 MG PO DAILY (Reported) Vitamin E Acetate 400 Unit Capsule 400 UNIT PO DAILY (Reported) Constitutional: no symptoms reported EENTM: no symptoms reported Respiratory: No cough, No short of breath Cardiovascular: No chest pain, No palpitations, No syncope Gastrointestinal: no symptoms reported Genitourinary: no symptoms reported Musculoskeletal: see HPINo back pain, joint painNo joint swelling, No neck pain Skin: no symptoms reported Psychiatric/Neurological: Denies Headache, Denies Numbness, Denies Paresthesia , Denies Seizure, Denies Tingling, Denies Weakness All Other Systems Reviewed Negative Unless Noted: Yes (Negative excepted noted.) Past Wkjluhj-Sbgrrx-Eumgxs Hx Patient Social History Alcohol Use: Denies Use Recreational Drug Use: No Smoking Status: Former Smoker Recent Foreign Travel: No Contact w/Someone Who Travel: No Recent Infectious Disease Expo: No Recent Hopitalizations: Yes Immunizations Up To Date Date of Pneumonia Vaccine: Sep 13, 2015 Date of Influenza Vaccine: Dec 01, 2010 Seasonal Allergies Seasonal Allergies: Yes Surgeries HX Surgeries: Yes (back,hernia repair with mesh,facial,) Respiratory Hx Respiratory Disorders: No Cardiovascular Hx Cardiac Disorders: Yes (unsure-had stress test here 3mo.ago) Cardiac Disorders: High Cholesterol, Hypertension Neurological Hx Neurological Disorders: No Reproductive System Hx Reproductive Disorders: No Genitourinary Hx Genitourinary Disorders: No Gastrointestinal Hx Gastrointestinal Disorders: Yes Gastrointestinal Disorders: Gastroesophageal Reflux Musculoskeletal Hx Musculoskeletal Disorders: Yes Musculoskeletal Disorders: Arthritis, Gout Endocrine Hx Endocrine Disorders: No HEENT HX ENT Disorders: Yes Cancer Hx Cancer: No Psychosocial Hx Psychiatric Problems: No Integumentary HX Skin/Integumentary Disorder: No Blood Transfusions Hx Blood Disorders: No Reviewed Nursing Assessment Reviewed/Agree w Nursing PMH: Yes Family Medical History Significant Family History: No Pertinent Family Hx Physical Exam Vital Signs Vital Sign - Last 12Hours 05/08/16 13:14 Temp 98.5 Pulse 70 Resp 18 B/P 152/119 Pulse Ox 95 Capillary Refill : Less Than 3 Seconds General Appearance: WD/WN no apparent distress HEENT: PERRL/EOMI pharynx normal other (normocephalic, atraumatic) Neck: non-tender full range of motion supple normal inspection Cardiovascular: normal peripheral pulses regular rate, rhythm no edema no murmur Respiratory: lungs clear normal breath sounds no respiratory distress other ( rt clavicle TTP w/o ecchymosis, swelling, or deformity.) Gastrointestinal: non tender softNo distended Back: normal inspection no vertebral tenderness Shoulder: normal inspection bone tenderness limited ROM pain soft tissue tenderness Elbow/Forearm: normal inspection, non-tender, no evidence of injury, normal ROM Wrist: Yes normal inspection, Yes non-tender, Yes no evidence of injury, Yes normal ROM Hand: normal inspection, non-tender, no evidence of injury, normal ROM Neurologic/Tendon: normal sensation normal motor functions normal tendon functions responds to pain no evidence tendon injury 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 Joint spaces are well maintained throughout. The soft tissues appear unremarkable. No radiopaque foreign bodies are identified. IMPRESSION: No acute fractures or dislocations of the right clavicle. Dictated by: Dictated on workstation # [id number] Reviewed: Reviewed by Me (radiology report reviewed) Diagonstic Imaging: Xray Plain Films/CT/US/NM/MRI: other (rt shoulder) Comments FINDINGS: Three views of the right shoulder were obtained. There is no fracture , dislocation, or other acute bony abnormality identified. The soft tissues appear unremarkable. No radiopaque foreign bodies identified. The visualized portions of the right lung are clear. IMPRESSION: No acute fractures or dislocations of the right shoulder. Dictated by: Dictated on workstation # [id number] Reviewed: Reviewed by Me (radiology report reviewed) Departure Communication Progress Notes diagnostic findings discussed with the patient. Patient continues to refuse pain medication. plan for dsch to home. Impression Impression: Primary Impression: Contusion of shoulder, right Additional Impression: Fall Qualified Code: W19.XXXA - Unspecified fall, initial encounter Disposition: 01 HOME, SELF-CARE Condition: Improved Departure-Patient Inst. Decision time for Depature: 14:08 Referrals: [facility] (PCP/Family) Primary Care Physician Patient Instructions: Contusion (DC), Preventing Falls Add. Discharge Instructions: All discharge instructions reviewed with patient and/or family. Voiced understanding. Continue usual home medication. Ibuprofen 800 mg by mouth every 8 hours as needed for pain. Arm sling as instructed. Ice pack for 20 minute intervals as needed for pain. Follow-up with family practitioner for recheck and possible need for outpatient MRI of the right shoulder if no improvement in symptoms in 7-10 days. Return to the emergency department for worsened pain, numbness, weakness, neck pain, back pain, headache, or any other concerns. GABRIELA KELLY May 08, 2016 13:39
--- NOTE | 2016-05-08 14:01 | Diagnostic Imaging Report ---
INDICATION: Shoulder pain status post fall. COMPARISON: None. FINDINGS: Two views of the right clavicle show no fractures, dislocations, or other acute bony abnormalities identified. Joint spaces are well maintained throughout. The soft tissues appear unremarkable. No radiopaque foreign bodies are identified. IMPRESSION: No acute fractures or dislocations of the right clavicle. Dictated by: Dictated on workstation # [id number]
--- NOTE | 2016-05-08 14:03 | Diagnostic Imaging Report ---
INDICATION: Fall. Shoulder pain. COMPARISON: None. FINDINGS: Three views of the right shoulder were obtained. There is no fracture, dislocation, or other acute bony abnormality identified. The soft tissues appear unremarkable. No radiopaque foreign bodies identified. The visualized portions of the right lung are clear. IMPRESSION: No acute fractures or dislocations of the right shoulder. Dictated by: Dictated on workstation # [id number]
[2016-05-08 14:19] VITALS: BP 149/111
== END 2016-05-08 14:19 | disposition home or self-care (01) ==
LOC: EDUNIT# 13:06 → ER 13:10
DX: S40.011A Contusion of right shoulder, initial encounter (principal); W17.89XA Other fall from one level to another, initial encounter; Y92.018 Other place in single-family (private) house as the place of occurrence of the external cause; Y99.8 Other external cause status
CPT/HCPCS: 73000; 73030; 99283

== ENCOUNTER → 2016-05-27 | Outpatient (CLI) | payer MEDICARE, OTHER ==
--- NOTE | 2016-05-27 15:43 | Diagnostic Imaging Report ---
PROCEDURE: MRI right joint upper extremity without contrast. TECHNIQUE: Multiplanar, multisequence non contrast-enhanced MRI of the right upper extremity was accomplished. INDICATION: Right shoulder injury. FINDINGS: There is no os acromiale. There is bone marrow signal abnormality and flattening with slight focal depression along the posterolateral aspect of the right humerus head compatible with an acute Hill-Sachs fracture. There is also suggestion of a fracture with significant bone marrow abnormality and likely minimal displacement within the anterior aspect of the glenoid. There is a focal tiny defect in the cartilage along the anterior aspect compatible with cartilage injury and increased signal in the anterior inferior labrum suggestive of a tear. CT scan correlation is suggested to better evaluate the fracture. The long head of biceps tendon is in its groove. There is increased signal in the distal subscapularis tendon along its inferior and deep fiber components compatible with a partial tear. There is also increased signal in the distal aspect of the supraspinatus and infraspinatus tendons compatible with partial tears. This includes an intrasubstance and bursal side low-grade tear of the infraspinatus. In the supraspinatus anteriorly, however, there is a high-grade undersurface tear near its insertion with retraction of the deep fibers by about 1 cm from the insertion point. The muscle bulk and signal around the shoulder appears normal. There is, however, mild soft tissue edema around the glenoid related to the injury and small hematoma. Small joint effusion seen. The AC joint demonstrates minimal inferior osteophytes with no subluxation or dislocation. IMPRESSION: 1. There is a fracture in the anterior aspect of the glenoid and an acute Hill-Sachs fracture of the posterolateral aspect of the right humeral head. CT scan of the shoulder is recommended to better evaluate the fracture extent and displacement. 2. Evidence of minimal cartilage injury and posttraumatic fissuring along the anterior glenoid. There is also an associated labrum tear. 3. High-grade partial tear of the supraspinatus with retraction of the deep fibers about 1 cm in the anterior aspect of the tendon. Partial tear of the infraspinatus and of the subscapularis tendons is also seen without retraction. 4. The above findings are suggestive of anterior dislocation with spontaneous reduction. The findings were discussed with Milly Chavez, nurse practitioner taking care of the patient by Dr. Villasenor at time of dictation. Dictated by: Dictated on workstation # [id number]
== END ==
LOC: RAD 13:41
PROVIDERS: ATTEND Nurse Practitioner Community Health
DX: M25.511 Pain in right shoulder (principal)
CPT/HCPCS: 73221

== ENCOUNTER → 2016-05-29 | Outpatient (CLI) | payer MEDICARE, OTHER ==
--- NOTE | 2016-05-29 09:38 | Diagnostic Imaging Report ---
INDICATION: Right elbow pain. AP, oblique, and lateral views of the right elbow are obtained. FINDINGS: No fracture or acute bony abnormality is seen. There is spurring of the olecranon process. There is also some osteophyte formation of the humeral epicondyles. There is no acute bony abnormality, however. There is no elevation of posterior fat pad. IMPRESSION: Mild chronic changes with no acute bony abnormality. Dictated by: Dictated on workstation # [id number]
--- NOTE | 2016-05-29 12:11 | Diagnostic Imaging Report ---
PROCEDURE: CT right upper extremity without contrast. TECHNIQUE: Multiple contiguous axial images were obtained through the right upper extremity without the use of intravenous contrast. Sagittal and coronal reformations were then performed. INDICATION: Right anterior shoulder pain with fracture in the glenoid and humeral head seen on MRI of 05/27/2016. The patient had a fall on 05/08/2016. FINDINGS: There is a fracture involving the anterior aspect of the glenoid with depression of the articular surface. The fracture line is in a vertical manner and extends to the base of the coracoid process. There is minimal comminution with a fracture line extending anteriorly from the main vertical fracture line into the anterior margin of the glenoid. There is impaction of the fractured portion with cortical step-off of about 2-3 mm at the joint line. There is a tiny plate of bone 6 mm in length, is partially detached and could possibly develop into a loose body. There is also a depressed fracture of the posterior lateral aspect of the humeral head. This is associated with significant bone marrow edema on MRI compatible with an acute Hill-Sachs fracture. There is no subluxation or dislocation. There is normal alignment at the glenohumeral joint and at the acromioclavicular joint. Minimal degenerative changes with capsular hypertrophy at the acromioclavicular joint is seen. At the proximal aspect of the humeral shaft medially, there is a tiny exostosis measuring 7 x 3 x 2 mm with no aggressive features. IMPRESSION: 1. Depressed minimally comminuted fracture of the anterior aspect of the glenoid with slight cortical step-off at the articular surface. There is a tiny partially detached bone fragment which may develop into a loose body. 2. Acute Hill-Sachs depressed fracture of the posterior lateral aspect of the head of the humerus. 3. The findings are suggestive of prior anterior dislocation with spontaneous reduction at the time of injury. The fracture findings were discussed with nurse practitioner Milly Chavez at the time of MRI study. Orthopedic consultation was recommended. Dictated by: Dictated on workstation # [id number]
== END ==
LOC: RAD 07:37
PROVIDERS: ATTEND Nurse Practitioner Community Health
DX: M25.511 Pain in right shoulder (principal)
CPT/HCPCS: 73080; 73200

== ENCOUNTER 2016-12-02 14:30 | Outpatient (CLI) | payer MEDICARE, OTHER ==
[~2016-12-02] VITALS: Ht 177.8 cm; Wt 90.7 kg
[2016-12-03] MEDS ORDERED: CAFFEINE PO (10:49)
[2016-12-03] MEDS ORDERED: CALC-987 PO (10:49)
[2016-12-03] MEDS ORDERED: CALC600T12 PO (10:49)
[2016-12-03] MEDS ORDERED: ASCO500T75 PO (10:49)
[2016-12-03] MEDS ORDERED: FLUT16SP22 NSEACH (10:49)
[2016-12-03] MEDS ORDERED: LORA10TA7 PO (10:49)
[2016-12-03] MEDS ORDERED: POTA99TA21 PO (10:49)
[2016-12-03] MEDS ORDERED: ASA PO (10:49)
[2016-12-03] MEDS ORDERED: LISI-552 PO (10:49)
[2016-12-03] MEDS ORDERED: OMG1KC PO (10:49)
[2016-12-03] MEDS ORDERED: RANI150T11 PO (10:49)
[2016-12-03] MEDS ORDERED: CHOL200014 PO (10:49)
[2016-12-03] MEDS ORDERED: CETI10TA17 PO (10:49)
[2016-12-03] MEDS ORDERED: LOVA40TA2 PO (10:49)
[2016-12-03] MEDS ORDERED: TYLENOL PO (10:49)
[2016-12-03] MEDS ORDERED: HYDR-3812 PO (10:49)
[2016-12-03] MEDS ORDERED: CELE-63 PO (10:49)
[2016-12-03] MEDS ORDERED: BETA1TAB12 PO (10:49)
== END 2016-12-02 14:40 ==
LOC: PREOP 14:30
PROVIDERS: ATTEND Surgery
DX: Z01.818 Encounter for other preprocedural examination (principal); K92.1 Melena

== ENCOUNTER 2016-12-03 09:35 | Day surgery (SDC) | payer MEDICARE, OTHER ==
[~2016-12-03] VITALS: Ht 177.8 cm; Wt 90.7 kg
--- OUTSIDE RECORDS SUMMARY | 2016-12-03 09:39 | XMS REPORT ---
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 189252370 Problem Essential hypertension I10 Active 47128483 Problem Hyperlipidemia E78.5 Active 35670813 Problem Unspecified injury of head, sequela S09.90XS Active 30770818 Problem Vision changes H53.9 Active 37885553 Problem Arthralgia M25.50 Active 86178766 Problem Headache due to trauma G44.309 Active 37047006 ALLERGIES Substance Reaction Event Type Date Status Gabapentin 300 Mg Capsule dizzy Non Drug Allergy Jan, Active Tramadol 50 Mg Tablet Dysphoria Non Drug Allergy Jan, Active SOCIAL HISTORY No smoking Hx information available PLAN OF CARE VITAL SIGNS Height 69 in 2016 Weight 218 lbs 2016 Heart Rate 88 bpm 2016 Respiratory Rate 18 2016 BMI 32.19 kg/m2 2016 Blood pressure systolic 140 mmHg 2016 Blood pressure diastolic 90 mmHg 2016 MEDICATIONS Medication Instructions Dosage Frequency Start Date End Date Duration Status Fish Oil 1000 MG Orally 2 times a day 1 capsule 12h Active Vitamin D3 2000 UNIT Orally 2 times a day 1 capsule 12h Active Hydrocodone-Acetaminophen 5-325 mg 1 Tablet by Oral route every 6 hours PRN Jan, Active Celebrex 200 mg TAKE ONE CAPSULE BY MOUTH TWICE DAILY 12h Active Cetirizine HCl 10 MG Active Tart Briscoe Advanced 1200 mg Orally 2 times a day 1 Capsule 12h Active Lisinopril 20 mg TAKE ONE TABLET BY MOUTH IN THE MORNING Active Flonase Allergy Relief 50 MCG/ACT Nasally 2 times a day 1 spray in each nostril 12h Active Ranitidine HCl by Oral route 150mg bid Pt buys OTC Oct, Active Vitamin C 1000 MG Orally 2 times a day 1 tablet 12h Active Lovastatin 40 mg TAKE TWO TABLETS BY MOUTH AT BEDTIME 24h Active RESULTS No Results PROCEDURES Procedure Date Ordered Related Diagnosis Body Site Office Visit, Est Pt., Level 3 2016 IMMUNIZATIONS No Known Immunizations
--- OUTSIDE RECORDS SUMMARY | 2016-12-03 09:41 | XMS REPORT | Continuity of Care Document ---
Author Author [facility] Address Unknown Phone Unavailable Allergies Active Description [...] DDS 786.05 Shortness Of Breath 04/26/2009 TAYE NAVARRO DDS 401.1 BENIGN ESSENTIAL HYPERTENSION 04/26/2009 MELANIE DDS, TAYE M 473.9 Unspecified Sinusitis (chronic) 04/26/2009 MELANIE DDS, TAYE Adam 786.05 Shortness Of Breath 04/26/2009 MELANIE DDS, TAYE M 401.1 BENIGN ESSENTIAL HYPERTENSION 04/26/2009 MELANIE DDS, TAYE M 473.9 Unspecified Sinusitis (chronic) 04/26/2009 MELANIE DDS, TAYE Adam 786.05 Shortness Of Breath 04/26/2009 YRN HARGROVE, DAVID Benavides 401.1 BENIGN ESSENTIAL HYPERTENSION 04/26/2009 YRN HARGROVE, DAVID Benavides 473.9 Unspecified Sinusitis (chronic) 04/26/2009 DAVID POOL PHD 786.05 Shortness Of Breath 04/26/2009 JOSE LUIS PROTOTYPE CARPENTER, BRADY S 401.1 BENIGN ESSENTIAL HYPERTENSION 04/26/2009 JOSE LUIS PROTOTYPE CARPENTER, BRADY S 473.9 Unspecified Sinusitis (chronic) 04/26/2009 JOSE LUIS PROTOTYPE CARPENTER, BRADY S 786.05 Shortness Of Breath 04/26/2009 JOSE LUIS PROTOTYPE CARPENTER, BRADY S 401.1 BENIGN ESSENTIAL HYPERTENSION 04/26/2009 JOSE LUIS PROTOTYPE CARPENTER, BRADY S 473.9 Unspecified Sinusitis (chronic) 04/26/2009 JOSE LUIS PROTOTYPE CARPENTER, BRADY S 786.05 Shortness Of Breath 04/26/2009 WHITE DDS, MARIIA D 401.1 BENIGN ESSENTIAL HYPERTENSION 04/26/2009 WHITE DDS, MARIIA D 473.9 Unspecified Sinusitis (chronic) 04/26/2009 WHITE DDS, MARIIA D 786.05 Shortness Of Breath 04/26/2009 JOSE LUIS PROTOTYPE CARPENTER, BRADY S 401.1 BENIGN ESSENTIAL HYPERTENSION 04/26/2009 JOSE LUIS PROTOTYPE CARPENTER, BRADY S 473.9 Unspecified Sinusitis (chronic) 04/26/2009 JOSE LUIS PROTOTYPE CARPENTER, BRADY S 786.05 Shortness Of Breath 05/10/2009 ROSAURA MCCRAY DO 272.4 OTHER AND UNSPECIFIED HYPERLIPIDEMIA 05/10/2009 YRN HARGROVE, DAVID Benavides 272.4 OTHER AND UNSPECIFIED HYPERLIPIDEMIA 05/10/2009 272.4 OTHER AND UNSPECIFIED HYPERLIPIDEMIA 05/10/2009 272.4 OTHER AND UNSPECIFIED HYPERLIPIDEMIA 05/10/2009 MELANIE ROJASS, TAYE M 272.4 OTHER AND UNSPECIFIED HYPERLIPIDEMIA 05/10/2009 MELANIE DDS, TAYE M 272.4 OTHER AND UNSPECIFIED HYPERLIPIDEMIA 05/10/2009 MELANIE DDS, TAYE M 272.4 OTHER AND UNSPECIFIED HYPERLIPIDEMIA 05/10/2009 YRN PHD, DAVID Benavides 272.4 OTHER AND UNSPECIFIED HYPERLIPIDEMIA 05/10/2009 JOSE LUIS PROTOTYPE CARPENTER, BRADY S 272.4 OTHER AND UNSPECIFIED HYPERLIPIDEMIA 05/10/2009 JOSE LUIS PROTOTYPE CARPENTER, BRADY S 272.4 OTHER AND UNSPECIFIED HYPERLIPIDEMIA 05/10/2009 WHITE DDS, MARIIA Garduno 272.4 OTHER AND UNSPECIFIED HYPERLIPIDEMIA 05/10/2009 JOSE LUIS PROTOTYPE CARPENTER, BRADY S 272.4 OTHER AND UNSPECIFIED HYPERLIPIDEMIA 09/04/2009 ROSAURA MCCRAY DO 692.9 Dermatitis Contact Unspecified 09/04/2009 YRN PHD, DAVID Benavides 692.9 Dermatitis Contact Unspecified 09/04/2009 692.9 Dermatitis Contact Unspecified 09/04/2009 692.9 Dermatitis Contact Unspecified 09/04/2009 MELANIE DDS, TAYE M 692.9 Dermatitis Contact Unspecified 09/04/2009 MELANIE DDS, TAYE M 692.9 Dermatitis Contact Unspecified 09/04/2009 MELANIE DDS, TAYE M 692.9 Dermatitis Contact Unspecified 09/04/2009 YRN HARGROVE, DAVID Benavides 692.9 Dermatitis Contact Unspecified 09/04/2009 JOSE LUIS PROTOTYPE CARPENTER, BRADY S 692.9 Dermatitis Contact Unspecified 09/04/2009 JOSE LUIS PROTOTYPE CARPENTER, BRADY S 692.9 Dermatitis Contact Unspecified 09/04/2009 WHITE DDS, MARIIA Garduno 692.9 Dermatitis Contact Unspecified 09/04/2009 JOSE LUIS PROTOTYPE CARPENTER, RBADY S 692.9 Dermatitis Contact Unspecified 12/26/2009 ROSAURA [...] Pcv13 Pcv23, Streptococcus Pneumoniae [pneumococcus] 12/26/2009 YRN PHD, DAVID Benavides 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 12/26/2009 YRN HARGROVE, DAVID Benavides V03.82 Pcv7 Pcv13 Pcv23, Streptococcus Pneumoniae [pneumococcus] 12/26/2009 JOSE LUIS PATEL, BRADY S 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 12/26/2009 JOSE LUIS PATEL, BRADY S V03.82 Pcv7 Pcv13 Pcv23, Streptococcus Pneumoniae [pneumococcus] 12/26/2009 JOSE LUIS MEZAN, BRADY S 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 12/26/2009 JOSE LUIS PATEL, BRADY S V03.82 Pcv7 Pcv13 Pcv23, Streptococcus Pneumoniae [pneumococcus] 12/26/2009 WHITE DDS, MARIIA Garduno 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 12/26/2009 DAE DDS, MARIIA Garduno V03.82 Pcv7 Pcv13 Pcv23, Streptococcus [...] INJURY TO HEAD 08/07/2010 MELANIE DDS, TAYE Adam 339.21 ACUTE POSTRAUMATIC HEADACHE 08/07/2010 MELANIE DDS, TAYE Adam 368.8 OTHER SPECIFIED VISUAL DISTURBANCES 08/07/2010 MELANIE DDS, TAYE Aadm 785.1 Palpitations 08/07/2010 MELANIE DDS, TAYE Adam 959.01 OTHER AND UNSPECIFIED INJURY TO HEAD 08/07/2010 MELANIE DDS, TAYE Adam 339.21 ACUTE POSTRAUMATIC HEADACHE 08/07/2010 MELANIE DDS, TAYE Adam 368.8 OTHER SPECIFIED VISUAL DISTURBANCES 08/07/2010 MELANIE DDS, TAYE Adam 785.1 Palpitations 08/07/2010 MELANIE DDS, TAYE Adam 959.01 OTHER AND UNSPECIFIED INJURY TO HEAD 08/07/2010 MELANIE DDS, TAYE Adam 339.21 ACUTE POSTRAUMATIC HEADACHE 08/07/2010 MELANIE DDS, TAYE M 368.8 OTHER SPECIFIED VISUAL DISTURBANCES 08/07/2010 MELANIE DDS, TAYE M 785.1 Palpitations 08/07/2010 MELANIE DDS, TAYE M 959.01 OTHER AND UNSPECIFIED INJURY TO HEAD 08/07/2010 [facility] PHD, DAVID A 339.21 ACUTE POSTRAUMATIC HEADACHE 08/07/2010 [facility] PHD, DAVID A 368.8 OTHER SPECIFIED VISUAL DISTURBANCES 08/07/2010 [facility] PHD, DAVID A 785.1 Palpitations 08/07/2010 [facility] PHD, DAVID A 959.01 OTHER AND UNSPECIFIED INJURY TO HEAD 08/07/2010 JOSE LUIS PROTOTYPE CARPENTER, BRADY S 339.21 ACUTE POSTRAUMATIC HEADACHE 08/07/2010 JOSE LUIS PROTOTYPE CARPENTER, BRADY S 368.8 OTHER SPECIFIED VISUAL DISTURBANCES 08/07/2010 JOSE LUIS PROTOTYPE CARPENTER, BRADY S 785.1 Palpitations 08/07/2010 JOSE LUIS PROTOTYPE CARPENTER, BRADY S 959.01 OTHER AND UNSPECIFIED INJURY TO HEAD 08/07/2010 JOSE LUIS PROTOTYPE CARPENTER, BRADY S 339.21 ACUTE POSTRAUMATIC HEADACHE 08/07/2010 JOSE LUIS PROTOTYPE CARPENTER, BRADY S 368.8 OTHER SPECIFIED VISUAL DISTURBANCES 08/07/2010 JOSE LUIS PROTOTYPE CARPENTER, BRADY S 785.1 Palpitations 08/07/2010 JOSE LUIS PROTOTYPE CARPENTER, BRADY S 959.01 OTHER AND UNSPECIFIED INJURY TO HEAD 08/07/2010 WHITE DDS, MARIIA D 339.21 ACUTE POSTRAUMATIC HEADACHE 08/07/2010 WHITE DDS, MARIIA D 368.8 OTHER SPECIFIED VISUAL DISTURBANCES 08/07/2010 WHITE DDS, MARIIA D 785.1 Palpitations 08/07/2010 WHITE DDS, MARIIA D 959.01 OTHER AND UNSPECIFIED INJURY TO HEAD 08/07/2010 JOSE LUIS PROTOTYPE CARPENTER, BRADY S 339.21 ACUTE POSTRAUMATIC HEADACHE 08/07/2010 JOSE LUIS PROTOTYPE CARPENTER, BRADY S 368.8 OTHER SPECIFIED VISUAL DISTURBANCES 08/07/2010 JOSE LUIS PROTOTYPE CARPENTER, BRADY S 785.1 Palpitations 08/07/2010 JOSE LUIS PROTOTYPE CARPENTER, BRADY S 959.01 OTHER AND UNSPECIFIED INJURY TO HEAD 08/30/2010 ROSAURA MCCRAY DO 682.0 Cellulitis And Abscess Of Face 08/30/2010 YRN HARGROVE, DAVID Benavides 682.0 Cellulitis And Abscess Of Face 08/30/2010 682.0 Cellulitis And Abscess Of Face 08/30/2010 682.0 Cellulitis And Abscess Of Face 08/30/2010 MELANIE DDS, TAYE Adam 682.0 Cellulitis And Abscess Of Face 08/30/2010 MELAINE DDS, TAYE Adam 682.0 Cellulitis And Abscess Of Face 08/30/2010 MELANIE DDS, TAYE Adam 682.0 Cellulitis And Abscess Of Face 08/30/2010 YRN PHD, DAVID Benavides 682.0 Cellulitis And Abscess Of Face 08/30/2010 JOSE LUIS PROTOTYPE CARPENTER, BRADY S 682.0 Cellulitis And Abscess Of Face 08/30/2010 JOSE LUIS PROTOTYPE CARPENTER, BRADY S 682.0 Cellulitis And Abscess Of Face 08/30/2010 DAE DDS, MARIIA Garduno 682.0 Cellulitis And Abscess Of Face 08/30/2010 JOSE LUIS PROTOTYPE CARPENTER, BRADY S 682.0 Cellulitis And Abscess Of [...] 780.2 Syncope And Collapse 11/21/2010 JOSE LUIS PROTOTYPE CARPENTER, BRADY S 719.49 PAIN IN JOINT INVOLVING MULTIPLE SITES 11/21/2010 JOSE LUIS PROTOTYPE CARPENTER, BRADY S 780.2 Syncope And Collapse 11/21/2010 JOSE LUIS PROTOTYPE CARPENTER, BRADY S 719.49 PAIN IN JOINT INVOLVING MULTIPLE SITES 11/21/2010 JOSE LUIS PROTOTYPE CARPENTER, BRADY S 780.2 Syncope And Collapse 11/21/2010 WHITE DDS, MARIIA D 719.49 PAIN IN JOINT INVOLVING MULTIPLE SITES 11/21/2010 WHITE DDS, MARIIA D 780.2 Syncope And Collapse 11/21/2010 JOSE LUIS PROTOTYPE CARPENTER, BRADY S 719.49 PAIN IN JOINT INVOLVING MULTIPLE SITES 11/21/2010 JOSE LUIS PROTOTYPE CARPENTER, BRADY S 780.2 Syncope And Collapse 11/28/2010 ROSAURA MCCRAY DO 311 DEPRESSIVE DISORDER NOS 11/28/2010 DAVID POOL PHD 311 DEPRESSIVE DISORDER NOS 11/28/2010 311 DEPRESSIVE DISORDER NOS 11/28/2010 311 DEPRESSIVE DISORDER NOS 11/28/2010 MELANIE DDSTAYE 311 DEPRESSIVE DISORDER NOS 11/28/2010 MELANIE DDS, TAYE Adam 311 DEPRESSIVE DISORDER NOS 11/28/2010 MELANIE DDS, TAYE Adam 311 DEPRESSIVE DISORDER NOS 11/28/2010 DAVID POOL PHD 311 DEPRESSIVE DISORDER NOS 11/28/2010 JOSE LUIS PATEL, BRADY S 311 DEPRESSIVE DISORDER NOS 11/28/2010 JOSE LUIS PATEL, BRADY S 311 DEPRESSIVE DISORDER NOS 11/28/2010 DAE DDSMARIIA 311 DEPRESSIVE DISORDER NOS 11/28/2010 JOSE LUIS PATEL, BRADY S 311 DEPRESSIVE DISORDER NOS 12/05/2010 ROSAURA MCCRAY DO V04.81 Flu Dx (3 Yrs And Above, Im) 12/05/2010 DAVID POOL PHD V04.81 Flu Dx (3 Yrs And Above, Im) 12/05/2010 V04.81 Flu Dx (3 Yrs And Above, Im) 12/05/2010 V04.81 Flu Dx (3 Yrs And Above, Im) 12/05/2010 MELANIE DDS, TAYE M V04.81 Flu Dx (3 Yrs And Above, Im) 12/05/2010 MELANIE DDS, TAYE M V04.81 Flu Dx (3 Yrs And Above, Im) 12/05/2010 MELANIE DDS, TAYE Adam V04.81 Flu Dx (3 Yrs And Above, Im) 12/05/2010 DAVID POOL PHD V04.81 Flu Dx (3 Yrs And Above, Im) 12/05/2010 JOSE LUIS PROTOTYPE CARPENTER, BRADY S V04.81 Flu Dx (3 Yrs And Above, Im) 12/05/2010 JOSE LUIS PROTOTYPE CARPENTER, BRADY S V04.81 Flu Dx (3 Yrs And Above, Im) 12/05/2010 WHITE DDS, MARIIA Garduno V04.81 Flu Dx (3 Yrs And Above, Im) 12/05/2010 JOSE LUIS PROTOTYPE CARPENTER, BRADY S V04.81 Flu Dx (3 Yrs And Above, Im) 01/02/2011 ROSAURA MCCRAY DO K 786.50 Chest Pain 01/02/2011 DAVID POOL PHD 786.50 Chest Pain 01/02/2011 786.50 Chest Pain 01/02/2011 786.50 Chest Pain 01/02/2011 MELANIE DDS, TAYE Adam 786.50 Chest Pain 01/02/2011 MELANIE DDS, TAYE M 786.50 Chest Pain 01/02/2011 MELANIE DDS, TAYE Adam 786.50 Chest Pain 01/02/2011 DAVID POOL PHD A 786.50 Chest Pain 01/02/2011 JOSE LUIS PROTOTYPE CARPENTER, BRADY S 786.50 Chest Pain 01/02/2011 JOSE LUIS PROTOTYPE CARPENTER, BRADY S 786.50 Chest Pain 01/02/2011 WHITE DDS, MARIIA D 786.50 Chest Pain 01/02/2011 JOSE LUIS PROTOTYPE CARPENTER, BRADY S 786.50 Chest Pain 01/07/2011 ROSAURA [...] TO FACE AND NECK 01/07/2011 JOSE LUIS PROTOTYPE CARPENTER, BRADY S 706.2 Sebaceous Cyst 01/07/2011 JOSE LUIS PROTOTYPE CARPENTER, BRADY S 959.09 OTHER AND UNSPECIFIED INJURY TO FACE AND NECK 01/07/2011 JOSE LUIS PROTOTYPE CARPENTER, BRADY S 706.2 Sebaceous Cyst 01/07/2011 JOSE LUIS PROTOTYPE CARPENTER, BRADY S 959.09 OTHER AND UNSPECIFIED INJURY TO FACE AND NECK 01/07/2011 DAE DDS, MARIIA D 706.2 Sebaceous Cyst 01/07/2011 WHITE DDS, MARIIA D 959.09 OTHER AND UNSPECIFIED INJURY TO FACE AND NECK 01/07/2011 JOSE LUIS PROTOTYPE CARPENTER, BRADY S 706.2 Sebaceous Cyst 01/07/2011 JOSE LUIS PROTOTYPE CARPENTER, BRADY S 959.09 OTHER AND UNSPECIFIED INJURY TO FACE AND NECK 04/30/2011 ROSAURA MCCRAY DO 473.9 Unspecified Sinusitis (chronic) 04/30/2011 DAVID POOL PHD 473.9 Unspecified Sinusitis (chronic) 04/30/2011 473.9 Unspecified Sinusitis (chronic) 04/30/2011 473.9 Unspecified Sinusitis (chronic) 04/30/2011 MELANIE DDS, TAYE Adam 473.9 Unspecified Sinusitis (chronic) 04/30/2011 MELANIE DDS, TAYE Adam 473.9 Unspecified Sinusitis (chronic) 04/30/2011 MELANIE ROJASS, TAYE Adam 473.9 Unspecified Sinusitis (chronic) 04/30/2011 DAVID POOL PHD 473.9 Unspecified Sinusitis (chronic) 04/30/2011 JOSE LUIS PROTOTYPE CARPENTER, BRADY S 473.9 Unspecified Sinusitis (chronic) 04/30/2011 JOSE LUIS PROTOTYPE CARPENTER, BRADY S 473.9 Unspecified Sinusitis (chronic) 04/30/2011 DAE ROJASS, MARIIA Garduno 473.9 Unspecified Sinusitis (chronic) 04/30/2011 JOSE LUIS PROTOTYPE CARPENTER, BRADY S 473.9 Unspecified Sinusitis (chronic) 05/22/2011 MAHENDRA DO, ROSAURA K 216.3 Benign Neoplasm Of Skin Of [...] Unspecified Parts Of Face 05/22/2011 JOSE LUIS PROTOTYPE CARPENTER, BRADY S 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 05/22/2011 JOSE LUIS PROTOTYPE CARPENTER, BRADY S 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 05/22/2011 MARIIA PEARL DDS 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 05/22/2011 JOSE LUIS PROTOTYPE CARPENTER, BRADY S 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 07/11/2011 ROSAURA MCCRAY DO 692.6 Contact Dermatitis And Other Eczema Due To Plants (except Food) 07/11/2011 ROSAURA MCCRAY DO 719.40 PAIN IN JOINT SITE UNSPECIFIED 07/11/2011 MAHENDRA ESCAMILLA ROSAURA K 780.79 Other Malaise And Fatigue 07/11/2011 DAVID [...] JOINT SITE UNSPECIFIED 07/11/2011 MELANIE DDS, TAYE M 780.79 Other Malaise And Fatigue 07/11/2011 MELANIE DDS, TAYE M 692.6 Contact Dermatitis And Other Eczema Due To Plants (except Food) 07/11/2011 MELANIE DDS, TAYE M 719.40 PAIN IN JOINT SITE UNSPECIFIED 07/11/2011 MELANIE DDS, TAYE Adam 780.79 Other Malaise And Fatigue 07/11/2011 DAVID POOL PHD 692.6 Contact Dermatitis And Other Eczema Due To Plants (except Food) 07/11/2011 YRN HARGROVE, DAVID Benavides 719.40 PAIN IN JOINT SITE UNSPECIFIED 07/11/2011 YRN HARGROVE, DAVID Benavides 780.79 Other Malaise And Fatigue 07/11/2011 JOSE LUIS PROTOTYPE CARPENTER, BRADY S 692.6 Contact Dermatitis And Other Eczema Due To Plants (except Food) 07/11/2011 JOSE LUIS PROTOTYPE CARPENTER, BRADY S 719.40 PAIN IN JOINT SITE UNSPECIFIED 07/11/2011 JOSE LUIS PROTOTYPE CARPENTER, BRADY S 780.79 Other Malaise And Fatigue 07/11/2011 JOSE LUIS PROTOTYPE CARPENTER, BRADY S 692.6 Contact Dermatitis And Other Eczema Due To Plants (except Food) 07/11/2011 JOSE LUIS PROTOTYPE CARPENTER, BRADY S 719.40 PAIN IN JOINT SITE UNSPECIFIED 07/11/2011 JOSE LUIS PROTOTYPE CARPENTER, BRADY S 780.79 Other Malaise And Fatigue 07/11/2011 WHITE DDS, MARIIA D 692.6 Contact Dermatitis And Other Eczema Due To Plants (except Food) 07/11/2011 WHITE DDS, MARIIA D 719.40 PAIN IN JOINT SITE UNSPECIFIED 07/11/2011 WHITE DDS, MARIIA D 780.79 Other Malaise And Fatigue 07/11/2011 JOSE LUIS PROTOTYPE CARPENTER, BRADY S 692.6 Contact Dermatitis And Other Eczema Due To Plants (except Food) 07/11/2011 JOSE LUIS PROTOTYPE CARPENTER, BRADY S 719.40 PAIN IN JOINT SITE UNSPECIFIED 07/11/2011 JOSE LUIS PROTOTYPE CARPENTER, BRADY S 780.79 Other Malaise And Fatigue [...] METHICILLIN RESISTANT STAPHYLOCOCCUS AUREUS 07/30/2011 JOSE LUIS PROTOTYPE CARPENTER, BRADY S 682.3 Cellulitis And Abscess Of Upper Arm And Forearm 07/30/2011 JOSE LUIS PROTOTYPE CARPENTER, BRADY S 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 07/30/2011 JOSE LUIS PROTOTYPE CARPENTER, BRADY S 682.3 Cellulitis And Abscess Of Upper Arm And Forearm 07/30/2011 JOSE LUIS PROTOTYPE CARPENTER, BRADY S 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 07/30/2011 WHITE DDS, MARIIA D 682.3 Cellulitis And Abscess Of Upper Arm And Forearm 07/30/2011 WHITE DDS, MARIIA D 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 07/30/2011 JOSE LUIS PROTOTYPE CARPENTER, BRADY S 682.3 Cellulitis And Abscess Of Upper Arm And Forearm 07/30/2011 JOSE LUIS PROTOTYPE CARPENTER, BRADY S V12.04 PERSONAL HISTORY OF METHICILLIN [...] Upper Arm And Forearm 08/05/2011 JOSE LUIS PROTOTYPE CARPENTER, BRADY S 041.12 Mrsa, Methicillin Resistant 08/05/2011 JOSE LUIS PROTOTYPE CARPENTER, BRADY S 682.3 Cellulitis And Abscess Of Upper Arm And Forearm 08/05/2011 JOSE LUIS PROTOTYPE CARPENTER, BRADY S 041.12 Mrsa, Methicillin Resistant 08/05/2011 JOSE LUIS PROTOTYPE CARPENTER, BRADY S 682.3 Cellulitis And Abscess Of Upper Arm And Forearm 08/05/2011 WHITE DDS, MARIIA D 041.12 Mrsa, Methicillin Resistant 08/05/2011 WHITE DDS, MARIIA D 682.3 Cellulitis And Abscess Of Upper Arm And Forearm 08/05/2011 JOSE LUIS PROTOTYPE CARPENTER, BRADY S 041.12 Mrsa, Methicillin Resistant 08/05/2011 JOSE LUIS PROTOTYPE CARPENTER, BRADY S 682.3 Cellulitis And Abscess Of [...] M 339.22 CHRONIC POSTTRAUMATIC HEADACHE 09/19/2011 YRN HARGROVE, DAVID Benavides 338.29 OTHER CHRONIC PAIN 09/19/2011 YRN HARGROVE, DAVID Benavides 339.22 CHRONIC POSTTRAUMATIC HEADACHE 09/19/2011 JOSE LUIS PROTOTYPE CARPENTER, BRADY S 338.29 OTHER CHRONIC PAIN 09/19/2011 JOSE LUIS PROTOTYPE CARPENTER, BRADY S 339.22 CHRONIC POSTTRAUMATIC HEADACHE 09/19/2011 JOSE LUIS PROTOTYPE CARPENTER, BRADY S 338.29 OTHER CHRONIC PAIN 09/19/2011 JOSE LUIS PROTOTYPE CARPENTER, BRADY S 339.22 CHRONIC POSTTRAUMATIC HEADACHE 09/19/2011 WHITE DDS, MARIIA D 338.29 OTHER CHRONIC PAIN 09/19/2011 WHITE DDS, MARIIA D 339.22 CHRONIC POSTTRAUMATIC HEADACHE 09/19/2011 JOSE LUIS PROTOTYPE CARPENTER, BRADY S 338.29 OTHER CHRONIC PAIN 09/19/2011 JOSE LUIS PROTOT[employer] CARPENTER, BRADY S 339.22 CHRONIC POSTTRAUMATIC HEADACHE 10/16/2011 MCCRAY DO, ROSAURA K 079.99 Viral Syndrome 10/16/2011 MCCRAY DO, ROSAURA K 787.1 Heartburn 10/16/2011 YRN HARGROVE, DAVID Benavides 079.99 Viral Syndrome 10/16/2011 YRN HARGROVE, DAVID Benavides 787.1 Heartburn 10/16/2011 079.99 Viral [...] DDS, TAYE M 787.1 Heartburn 10/16/2011 YRN HARGROVE, DAVID A 079.99 Viral Syndrome 10/16/2011 YRN PHD, DAVID A 787.1 Heartburn 10/16/2011 JOSE LUIS PROTOTYPE CARPENTER, BRADY S 079.99 Viral Syndrome 10/16/2011 JOSE LUIS PROTOTYPE CARPENTER, BRADY S 787.1 Heartburn 10/16/2011 JOSE LUIS PROTOT[employer] CARPENTER, BRADY S 079.99 Viral Syndrome 10/16/2011 JOSE LUIS PROTOT[employer] CARPENTER, BRADY S 787.1 Heartburn 10/16/2011 WHITE DDS, MARIIA D 079.99 Viral Syndrome 10/16/2011 WHITE DDS, MARIIA Garduno 787.1 Heartburn 10/16/2011 JOSE LUIS PROTOTYPE CARPENTER, BRADY S 079.99 Viral Syndrome 10/16/2011 JOSE LUIS PROTOT[employer] CARPENTER, BRADY S 787.1 Heartburn 12/26/2011 ROSAURA MCCRAY [...] D 296.32 MO DEPRESSIVE RECURRENT MODERATE 12/26/2011 JOSE LUIS PATEL BRADY S 296.32 MO DEPRESSIVE RECURRENT MODERATE 11/17/2012 [...] M 703.0 NAIL INGROWN 11/17/2012 JOSE LUIS PROTOTYPE CARPENTER, BRADY S 274.9 GOUT UNSPECIFIED 11/17/2012 JOSE LUIS PROTOT[employer] CARPENTER, BRADY S 703.0 NAIL INGROWN 11/17/2012 JOSE LUIS PROTOT[employer] CARPENTER, BRADY S 274.9 GOUT UNSPECIFIED 11/17/2012 JOSE LUIS PROTOT[employer] CARPENTER, BRADY S 703.0 NAIL INGROWN 11/17/2012 WHITE DDS, MARIIA D 274.9 GOUT UNSPECIFIED 11/17/2012 WHITE DDS, MARIIA D 703.0 NAIL INGROWN 11/17/2012 JOSE LUIS PR[employer]OT[employer] CARPENTER, BRADY S 274.9 GOUT UNSPECIFIED 11/17/2012 JOSE LUIS PROTOTYPE CARPENTER, BRADY S 703.0 NAIL INGROWN 09/23/2013 JOSE LUIS PROTOT[employer] CARPENTER, BRADY S 530.81 GERD 09/23/2013 WHITE DDS, MARIIA D 530.81 GERD 09/23/2013 JOSE LUIS PROTOTYPE CARPENTER, BRADY S 530.81 GERD Procedures Code [place] [address] INDIV PSYTX 45/50 MIN 01/28/2012 46564 XRAY ELBOW L COMP MIN 3 VIEWS 02/10/2012 40983 XRAY HAND LEFT MIN 3 VIEWS 02/10/2012 70225 XRAY KNEE RIGHT 3 VIEWS 02/10/2012 39696 XRAY FEET, NOHEMY 97091 INDIV PSYTX 45/50 MIN 02/12/2012 87603 ROUTINE VENIPUNCTURE 10/22/2012 52798 ESR/SED RATE 13889 CBC 10/22/2012 60502 LIPID PANEL 10/22 18223 CMP 10/22/2012 2998521 GFR CALC (RESULT ONLY) 10/22/2012 80083 REMOVAL OF NAIL BED 12/11/2012 14679 ROUTINE VENIPUNCTURE 09/23/2013 51911 CBC 09/23/2013 [id number] GFR CALC (RESULT ONLY) 09/23/2013 60515 CMP 09/23/2013 95340 LIPID PANEL 09/23 85898 TSH 09/23/2013 Results Encounters ACCT No. Visit Date/Time Discharge Status Pt. Type Provider Facility Loc./Unit Complaint [id number] 04/12/2014 10:03:00 04/12/2014 23: 59:59 CLS Outpatient JOSE LUIS PROTOTYPE CARPENTERELIDIABRADY [place] [id number] 11/29/2013 15:24:00 11/29/2013 23: 59:59 CLS Outpatient MARIIA PEARL DDS [id number] 09/23/2013 09:57:00 09/23/2013 23: 59:59 CLS Outpatient JOSE LUIS JORGEELIDIABRADY S [id number] 06/03/2013 13:44:00 06/03/2013 23: 59:59 CLS Outpatient JOSE LUIS PATEL BRADY [place] [id number] 01/12/2013 12:34:00 01/12/2013 23: 59:59 CLS Outpatient MELANIE DDTAYE Edward [id number] 12/09/2012 15:44:00 12/09/2012 23: 59:59 CLS Outpatient TAYE NAVARRO DDS [id number] 12/09/2012 00:00:00 12/09/2012 23: 59:59 CLS Outpatient TAYE NAVARRO DDS [id number] 02/12/2012 12:55:00 02/12/2012 23: 59:59 CLS Outpatient DAVID POOL PHD [id number] 02/10/2012 10:13:00 02/10/2012 23: 59:59 [place] [id number] 01/28/2012 12:50:00 01/28/2012 23: 59:59 CLS Outpatient DAVID POOL PHD [id number] 11/17/2012 09:37:00 Document Registration [id number] 10/22/2012 10:08:00 Document Registration
[2016-12-03] MEDS ORDERED: LACTATED RINGERS 1,000 ML IV ONE (09:44)
[2016-12-03] MEDS ORDERED: LACTATED RINGERS 1,000 ML IV STA (09:50)
[2016-12-03 10:11] VITALS: BP 128/80
[2016-12-03] MEDS ORDERED: RANI150T11 PO (10:49)
[2016-12-03] MEDS ORDERED: CAFFEINE PO (10:49)
[2016-12-03] MEDS ORDERED: POTA99TA21 PO (10:49)
[2016-12-03] MEDS ORDERED: CALC-987 PO (10:49)
[2016-12-03] MEDS ORDERED: CHOL200014 PO (10:49)
[2016-12-03] MEDS ORDERED: HYDR-3812 PO (10:49)
[2016-12-03] MEDS ORDERED: CALC600T12 PO (10:49)
[2016-12-03] MEDS ORDERED: CELE-63 PO (10:49)
[2016-12-03] MEDS ORDERED: LISI-552 PO (10:49)
[2016-12-03] MEDS ORDERED: TYLENOL PO (10:49)
[2016-12-03] MEDS ORDERED: LORA10TA7 PO (10:49)
[2016-12-03] MEDS ORDERED: LOVA40TA2 PO (10:49)
[2016-12-03] MEDS ORDERED: OMG1KC PO (10:49)
[2016-12-03] MEDS ORDERED: ASA PO (10:49)
[2016-12-03] MEDS ORDERED: FLUT16SP22 NSEACH (10:49)
[2016-12-03] MEDS ORDERED: BETA1TAB12 PO (10:49)
[2016-12-03] MEDS ORDERED: CETI10TA17 PO (10:49)
[2016-12-03] MEDS ORDERED: ASCO500T75 PO (10:49)
[2016-12-03] MEDS ORDERED: PROPOFOL INJECTION 50 ML IV ONE (12:54)
[2016-12-03] MEDS ORDERED: MIDAZOLAM 5 MG/5 ML (VERSED) VIAL ONE (12:54)
--- NOTE | 2016-12-03 13:55 | Progress Note-Post Operative ---
Post-Operative Progess Note Surgeon (s)/Cash Sales Audit Clerk (s) Surgeon SARITA READ DO Cash Sales Audit Clerk: n/a Pre-Operative Diagnosis blood per rectum, family history colon cancer Post-Operative Diagnosis transverse colon polyp Procedure & Operative Findings Date of Procedure 12/03/16 Procedure Performed/Findings colonoscopy with hot bx polypectomy Anesthesia Type per mda Estimated Blood Loss Estimated blood loss (mL): none Specimens/Packing Specimens Removed colon polyp SARITA READ DO Dec 03, 2016 13:55
[2016-12-03 14:05] VITALS: BP 121/70
[2016-12-03 14:35] VITALS: BP 126/86
[2016-12-03 14:39] VITALS: BP 126/86
--- NOTE | 2016-12-04 06:12 | OPERATIVE REPORT ---
DATE OF SERVICE: 12/03/2016 PREOPERATIVE DIAGNOSIS: Blood per rectum, family history of colon cancer. POSTOPERATIVE DIAGNOSIS: Transverse colon polyp. PROCEDURE: Colonoscopy with hot biopsy polypectomy. SURGEON: Sarita Brock DO ANESTHESIA: Per MDA. ESTIMATED BLOOD LOSS: None. COMPLICATIONS: None. INDICATIONS: The patient is a 51-year-old male who had some recent blood per rectum. He understands risks and benefits of procedure and wished to proceed with procedure. Consent was signed on the chart. DESCRIPTION OF PROCEDURE: The patient was taken to the endoscopy suite, placed in left lateral recumbent position. Timeout was performed. Digital rectal exam was performed and there were no palpable polyps, masses or ulcerations. Scope was inserted in the rectum and advanced all the way to the cecum with minimal difficulty. Prep was adequate. Scope was then slowly retracted back. There were no polyps, mass or ulcerations within the cecum and ascending colon. Within the transverse colon, a small polyp was present, which hot biopsy polypectomy was performed. Scope was continuously retracted back. There were no other polyps, masses or ulcerations visualized within the remainder of the transverse colon, descending colon and sigmoid colon. Once in the rectum, scope was also retroflexed noting no other pathology except for slight hemorrhoidal tissue. Scope was returned to its normal position, slowly withdrawn until completely removed. The patient tolerated the procedure well without any complications. He was taken to the recovery room in stable condition. RECOMMENDATIONS: The patient will need repeat colonoscopy in 5 years. If he has any problems prior to that, he should be reevaluated at that time. The patient will follow up in approximately two weeks to discuss pathology results. Job ID: [id number] DocumentID: [id number] Dictated Date: 12/03/2016 14:52:07 [employer] Date: 12/04/2016 06:12:11 Dictated By: SARITA BROCK DO
== END 2016-12-03 15:04 | disposition home or self-care (01) ==
LOC: ENDO 09:35
PROVIDERS: ATTEND Surgery
DX: Z79.899 Other long term (current) drug therapy; Z80.0 Family history of malignant neoplasm of digestive organs; Z87.891 Personal history of nicotine dependence; J45.909 Unspecified asthma, uncomplicated; D12.3 Benign neoplasm of transverse colon; I10 Essential (primary) hypertension; K21.9 Gastro-esophageal reflux disease without esophagitis

== ENCOUNTER → 2017-12-26 | Outpatient (CLI) | payer MEDICARE, OTHER ==
[~2017-12-26] MED LIST changes: +ACHD5005 PO; +ASA PO; +ASCO500T75 PO; +BETA1TAB12 PO; +CAFFEINE PO; +CALC-987 PO; +CALC600T12 PO; +CELE-63 PO; +CETI10TA17 PO; +CHOL200085 PO; +FLUT16SP22 NSEACH; +LISI-552 PO; +OMG1KC PO; +POTA99TA21 PO; +RANI150T11 PO; +TYLENOL PO
--- NOTE | 2017-12-26 12:57 | Diagnostic Imaging Report ---
PROCEDURE: CT sinuses without contrast TECHNIQUE: Multiple contiguous axial images were obtained through the sinuses without the use of intravenous contrast. Coronal and sagittal reformations were then performed. INDICATION: Chronic sinus headache and pressure. FINDINGS: The frontal sinus is clear. Ethmoid air cells are clear. There is some fluid or mucosal thickening in the sphenoid sinus. There is near complete opacification of the right maxillary sinus. Left maxillary sinus is clear. There are postop changes involving the anterior wall of the left maxillary sinus. Mastoids are well aerated. Nasal septum is midline. Ostiomeatal complexes appear patent. IMPRESSION: Near complete opacification of the right maxillary sinus. This could be secondary to a large mucus retention cyst or polyp. There is some mucosal thickening of the sphenoid sinus. No other significant abnormality is seen. Dictated by: Dictated on workstation # [id number]
== END ==
LOC: RAD 12:33
PROVIDERS: ATTEND Nurse Practitioner Community Health
DX: J34.89 Other specified disorders of nose and nasal sinuses (principal); R51 Headache; G89.29 Other chronic pain
CPT/HCPCS: 70486